=== PATIENT | male | born 1945 | race Caucasian/White ===

== ENCOUNTER 2017-08-28 13:28 | Outpatient (POV) | payer MEDICARE, OTHER, SELFPAY | END 2017-08-28 15:39 | disposition home or self-care (01) | PROVIDERS: Family Provider Internal Medicine; PCP Internal Medicine; Visit Provider Urology | DX: N20.1 Calculus of ureter (principal) | CPT/HCPCS: 81002; 99212 ==

== ENCOUNTER → 2017-09-04 17:27 | Outpatient (REF) | payer MEDICARE, OTHER, SELFPAY ==
[2017-09-14 17:12] LABS: Specimen Type Comment: (.)
== END ==
LOC: LAB 17:27
PROVIDERS: Visit Provider Urology
DX: N20.1 Calculus of ureter (principal)
CPT/HCPCS: 82370

== ENCOUNTER → 2017-10-26 09:29 | Outpatient (CLI) | payer MEDICARE, SELFPAY ==
--- NOTE | 2017-10-26 09:33 | XR_ITS ---
XR wrist LT min 3V HISTORY: Left wrist pain ITS.REASON: left wrist pain ORDERING PHYSICIAN: Rickie Hercules MD PATIENT AGE: 71 years COMPARISON: None FINDINGS: There are severe osteoarthritic changes at the scaphotrapezium joint with loss of joint space, osteosclerosis, and subcortical cystic changes. No fracture or dislocation. No other significant anomalies. IMPRESSION: Severe osteoarthritis of the scaphotrapezium joint
== END ==
PROVIDERS: PCP Internal Medicine; Visit Provider Orthopaedic Surgery
DX: M25.532 Pain in left wrist (principal)
CPT/HCPCS: 73110

== ENCOUNTER 2017-10-26 10:40 | Outpatient (RCR) | payer MEDICARE, SELFPAY | END 2017-12-13 08:38 | disposition home or self-care (01) | LOC: OT 10:40 | PROVIDERS: Visit Provider Orthopaedic Surgery | DX: M19.032 Primary osteoarthritis, left wrist (principal); M25.532 Pain in left wrist | CPT/HCPCS: 97760 ==

== ENCOUNTER → 2017-11-27 12:43 | Outpatient (CLI) | payer MEDICARE, SELFPAY ==
--- NOTE | 2017-11-27 12:49 | XR_ITS ---
XR KUB CLINICAL INDICATION: ITS.REASON: KIDNEY STONES ORDERING PHYSICIAN: Law Corrales MD PATIENT AGE: 72 years COMPARISON: 05/17/2015 FINDINGS: There is a moderate amount of feces obscuring the renal outlines. Faint densities are noted over the lower pole left kidney consistent left-sided nephrolithiasis. Previous CT scan showed a stone in the left mid ureter. There is a 3 to 4 mm opacity in the left pelvic region which could be related to a distal ureteral stone.. IMPRESSION: 1. Left nephrolithiasis. 2. Possible 3 mm left distal ureteral stone versus phlebolith
== END ==
PROVIDERS: PCP Internal Medicine; Visit Provider Urology
DX: N20.0 Calculus of kidney (principal)
CPT/HCPCS: 74018

== ENCOUNTER → 2017-12-03 17:07 | Outpatient (CLI) | payer MEDICARE, SELFPAY ==
[2017-12-03 19:50] LABS: Prostate Specific Ag, Diagnost 0 ng/mL (0.0-4.0)
== END ==
PROVIDERS: Visit Provider Urology
DX: C61 Malignant neoplasm of prostate (principal)
CPT/HCPCS: 36415; 84153

== ENCOUNTER → 2018-05-27 07:02 | Outpatient (CLI) | payer MEDICARE, SELFPAY ==
[2018-05-27 09:20] LABS: Prostate Specific Ag, Diagnost < 0.05 ng/mL (0.0-4.0)
== END ==
PROVIDERS: PCP Internal Medicine; Visit Provider Urology
DX: C61 Malignant neoplasm of prostate (principal)
CPT/HCPCS: 36415; 84153

== ENCOUNTER → 2019-04-23 09:16 | Outpatient (CLI) | payer MEDICARE, SELFPAY ==
--- NOTE | 2019-04-23 09:23 | XR_ITS ---
PROCEDURE: XR SHOULDER LT MIN 2V CLINICAL INDICATION: BILAT SHOULDER PAIN Pain and stiffness COMPARISON: No exams were available for comparison FINDINGS: There are postsurgical changes with metallic anchors at the a chromium and proximal humerus. There is severe subacromial stenosis. There is deformity of the humeral head with severe osteoarthritis of the glenohumeral joint and prominent osteophyte formation along the inferior aspect of the glenoid IMPRESSION: Severe osteoarthritis left shoulder with postsurgical changes and loss of the subacromial space consistent with chronic tear of the rotator cuff Dictated by: Bart Bach MD 04/23/2019 16:45 Signed by: <Electronically signed by Bart Bach MD in [place]> 04/23/2019 16:45
--- NOTE | 2019-04-23 09:23 | XR_ITS ---
PROCEDURE: XR SHOULDER RT MIN 2V CLINICAL INDICATION: BILAT SHOULDER PAIN Right shoulder pain COMPARISON: No exams were available for comparison FINDINGS: There are postsurgical changes with metallic anchor along the humeral neck laterally. There is severe subacromial stenosis the with bony hypertrophy and osteosclerosis consistent with osteoarthritis. Calcification is present along the humeral head laterally consistent with calcific tendinitis. There loss of the acromiohumeral space consistent with rotator cuff tear with superior location of the humeral head. IMPRESSION: Calcific tendonitis with severe osteoarthritic change and loss of subacromial space consistent with rotator cuff tear Dictated by: Bart Bach MD 04/23/2019 16:46 Signed by: <Electronically signed by Bart Bach MD in [place]> 04/23/2019 16:46
== END ==
PROVIDERS: PCP Internal Medicine; Visit Provider Internal Medicine
DX: M25.511 Pain in right shoulder (principal); M25.512 Pain in left shoulder; M25.612 Stiffness of left shoulder, not elsewhere classified; M25.611 Stiffness of right shoulder, not elsewhere classified
CPT/HCPCS: 73030

== ENCOUNTER → 2019-06-17 08:28 | Outpatient (CLI) | payer MEDICARE, SELFPAY ==
[2019-06-17 10:59] LABS: Prostate Specific Ag, Diagnost 0 ng/mL (0.0-4.0)
== END ==
PROVIDERS: Visit Provider Urology
DX: C61 Malignant neoplasm of prostate (principal)
CPT/HCPCS: 36415; 84153

== ENCOUNTER → 2019-07-25 11:07 | Outpatient (CLI) | payer MEDICARE, SELFPAY ==
--- NOTE | 2019-07-25 11:29 | ECG_ITS ---
APPROVED REPORT Exam: Resting ECG HR:63 bpm ECG Measurements Heart Rate 63 AXES GA 170 P 60 QRSd 94 QRS 88 QT 388 T 54 QTc 397 <Conclusion> Sinus rhythm with PAC'S Otherwise normal ECG Electronically signed by : Kavon Alcantara, 07/28/2019 16:59:25
== END ==
PROVIDERS: PCP Internal Medicine; Visit Provider Internal Medicine
DX: I49.9 Cardiac arrhythmia, unspecified (principal); Z96.611 Presence of right artificial shoulder joint
CPT/HCPCS: 93005

== ENCOUNTER → 2021-05-17 10:27 | Outpatient (POV) | payer MEDICARE, SELFPAY | PROVIDERS: Visit Provider Dermatology | DX: Z00.00 Encounter for general adult medical examination without abnormal findings (principal) ==

== ENCOUNTER → 2021-06-07 13:27 | Outpatient (POV) | payer MEDICARE, SELFPAY | PROVIDERS: Visit Provider Dermatology | DX: Z00.00 Encounter for general adult medical examination without abnormal findings (principal) ==

== ENCOUNTER → 2021-11-02 12:15 | Outpatient (CLI) | payer MEDICARE, SELFPAY ==
[2021-11-02 14:00] LABS: Basophils # 0.1 K/mm3 (0-0.2); Basophils % 1.2 % (0.1-2.0); Eosinophils # 0.2 K/mm3 (0.0-0.4); Eosinophils % 3.8 % (0.1-12.0); Hematocrit 46.1 % (42.0-52.0); Hemoglobin 14.6 g/dL (14.1-18.0); Lymphocytes % 21.4 % (10-50); Mean Corpuscular HGB Conc 31.7 g/dL (31.8-35.4); Mean Corpuscular Hemoglobin 29.1 pg (27.0-31.2); Mean Corpuscular Volume 91.9 fl (80-94); Monocytes # 0.3 K/mm3 (0.1-1.0); Monocytes % 7.1 % (1.7-9.3); Neutrophils # 3.1 K/mm3 (1.8-7.8); Neutrophils % 66.6 % (37.0-80.0); Platelet Count 345 K/mm3 (142-424); Red Blood Count 5.01 M/mm3 (4.60-6.20); Red Cell Distribution Width 14.5 % (11.5-17.5); White Blood Count 4.6 K/mm3 (4.8-10.8)
[2021-11-02 14:38] LABS: Alanine Aminotransferase 22 U/L (12-78); Albumin Level 4.3 g/dl (3.5-5.0); Alkaline Phosphatase 123 U/L (38-126); Anion Gap 11.6 mEq/L (5-15); Aspartate Amino Transferase 52 U/L (17-59); Bilirubin,Total 1.3 mg/dl (0.2-1.3); Blood Urea Nitrogen 30 mg/dl (9-20); Calcium 8.6 mg/dl (8.4-10.2); Carbon Dioxide 27 mmol/L (22.0-30.0); Chloride 106 mmol/L (98-107); Chol/HDL Ratio 2.4 (1-3.5); Cholesterol 171 mg/dl (140-200); Estimated Glomerular Filt Rate 82 ml/min (>60); GFR (African American) 99 ML/MIN (>60); Globulin 2.2 g/dL (1.3-3.2); Glucose 74 mg/dl (74-100); HDL Cholesterol 72 mg/dl (40-60); Potassium 4.6 mmoL/L (3.5-5.1); Sodium 140 mmol/L (136-145); Total Protein,Serum 6.5 g/dl (6.3-8.2); Triglycerides 38 mg/dl (30-150); VLDL Cholesterol 8 mg/dL (0-40)
[2021-11-02 14:49] LABS: Direct LDL Cholesterol 67.94 mg/dL (100-129)
== END ==
PROVIDERS: Visit Provider Internal Medicine
DX: I49.1 Atrial premature depolarization (principal); E78.5 Hyperlipidemia, unspecified; M15.0 Primary generalized (osteo)arthritis
CPT/HCPCS: 80053; 80061; 85025

== ENCOUNTER → 2022-05-05 14:05 | Outpatient (CLI) | payer MEDICARE, SELFPAY ==
[2022-05-05 16:40] LABS: Alanine Aminotransferase 21 U/L (12-78); Albumin Level 4.1 g/dl (3.5-5.0); Albumin/Globulin Ratio 1.7 (1.1-1.8); Alkaline Phosphatase 138 U/L (38-126); Anion Gap 10.9 mEq/L (5-15); Aspartate Amino Transferase 37 U/L (17-59); Bilirubin,Total 1.2 mg/dl (0.2-1.3); Blood Urea Nitrogen 34 mg/dl (9-20); Calcium 8.9 mg/dl (8.4-10.2); Carbon Dioxide 26 mmol/L (22.0-30.0); Chloride 107 mmol/L (98-107); Chol/HDL Ratio 2.6 (1-3.5); Cholesterol 150 mg/dl (140-200); Estimated Glomerular Filt Rate 82 ml/min (>60); GFR (African American) 99 ML/MIN (>60); Globulin 2.4 g/dL (1.3-3.2); Glucose 72 mg/dl (74-100); HDL Cholesterol 57 mg/dl (40-60); Potassium 4.9 mmoL/L (3.5-5.1); Sodium 139 mmol/L (136-145); Total Protein,Serum 6.5 g/dl (6.3-8.2); Triglycerides 56 mg/dl (30-150); VLDL Cholesterol 11 mg/dL (0-40)
[2022-05-05 17:11] LABS: Prostate Specific Ag Screen < 0.1 ng/ml (0.0-4.0)
[2022-05-10 19:10] LABS: Direct LDL Cholesterol 80 mg/dL (100-129)
== END ==
PROVIDERS: PCP Internal Medicine; Visit Provider Internal Medicine
DX: I71.4 Abdominal aortic aneurysm, without rupture (principal); E78.5 Hyperlipidemia, unspecified; Z85.46 Personal history of malignant neoplasm of prostate; Z12.5 Encounter for screening for malignant neoplasm of prostate
CPT/HCPCS: 80053; 80061; G0103

== ENCOUNTER → 2022-11-04 08:41 | Outpatient (CLI) | payer MEDICARE, SELFPAY ==
[2022-11-04 11:11] LABS: Blood Urea Nitrogen 25 mg/dl (9-20); Estimated Glomerular Filt Rate 65 ml/min (>60); GFR (African American) 78 ML/MIN (>60)
== END ==
PROVIDERS: PCP Internal Medicine; Visit Provider Ophthalmology
DX: Z01.812 Encounter for preprocedural laboratory examination (principal)
CPT/HCPCS: 36415; 82565; 84520

== ENCOUNTER → 2022-11-06 08:37 | Outpatient (CLI) | payer MEDICARE, SELFPAY ==
--- NOTE | 2022-11-06 08:45 | MR_ITS ---
FINAL REPORT CLINICAL HISTORY: BILATERAL BLURRED VISION since aug 2019. FINDINGS: Multiplanar MR imaging of the brain was performed without and with contrast. There is age-appropriate atrophy. There is are severe chronic ischemic/gliotic changes. 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 There is no evidence of intracranial hemorrhage or mass. No abnormal extra-axial fluid collection is seen. The ventricular size is within normal limits. There is no evidence of shift of the midline structures. The posterior fossa and brainstem have an unremarkable appearance. No area of abnormal restricted diffusion is identified. No abnormal contrast enhancement is seen. Normal major vessel vascular flow voids are noted. There is mild mucosal thickening in multiple paranasal sinuses. IMPRESSION: No acute intracranial abnormality identified and no abnormal contrast enhancement. Chronic changes as above. Reviewed, Interpreted and Dictated by Vega Alfonso III, MD Transcribed by Kriss Menendez Authenticated and [facility]
== END ==
PROVIDERS: PCP Internal Medicine; Visit Provider Ophthalmology
DX: H54.7 Unspecified visual loss (principal)
CPT/HCPCS: 70553; A9576

== ENCOUNTER → 2022-11-10 12:16 | Outpatient (CLI) | payer MEDICARE, SELFPAY ==
[2022-11-10 13:08] LABS: Basophils # 0.1 K/mm3 (0-0.2); Basophils % 1.1 % (0.1-2.0); Eosinophils # 0.1 K/mm3 (0.0-0.4); Eosinophils % 2.2 % (0.1-12.0); Hematocrit 44.9 % (42.0-52.0); Hemoglobin 14.5 g/dL (14.1-18.0); Lymphocytes # 0.8 K/mm3 (0.7-4.5); Lymphocytes % 18.5 % (10-50); Mean Corpuscular HGB Conc 32.4 g/dL (31.8-35.4); Mean Corpuscular Hemoglobin 27.1 pg (27.0-31.2); Mean Corpuscular Volume 83.6 fl (80-94); Mean Platelet Volume 8.8 fl (7.4-10.4); Monocytes # 0.3 K/mm3 (0.1-1.0); Monocytes % 6.3 % (1.7-9.3); Platelet Count 298 K/mm3 (142-424); Red Blood Count 5.37 M/mm3 (4.60-6.20); Red Cell Distribution Width 15.8 % (11.5-17.5); White Blood Count 4.1 K/mm3 (4.8-10.8)
[2022-11-10 14:01] LABS: Chloride 106 mmol/L (98-107); Potassium 4.8 mmoL/L (3.5-5.1); Sodium 140 mmol/L (136-145)
[2022-11-10 14:03] LABS: Blood Urea Nitrogen 26 mg/dl (9-20); Estimated Glomerular Filt Rate 72 ml/min (>60); GFR (African American) 87 ML/MIN (>60)
[2022-11-10 14:04] LABS: Alanine Aminotransferase 30 U/L (12-78); Albumin Level 4.1 g/dl (3.5-5.0); Albumin/Globulin Ratio 1.7 (1.1-1.8); Alkaline Phosphatase 129 U/L (38-126); Anion Gap 9.8 mEq/L (5-15); Aspartate Amino Transferase 40 U/L (17-59); Bilirubin,Total 0.8 mg/dl (0.2-1.3); Calcium 8.3 mg/dl (8.4-10.2); Carbon Dioxide 29 mmol/L (22.0-30.0); Cholesterol 153 mg/dl (140-200); Globulin 2.4 g/dL (1.3-3.2); Glucose 83 mg/dl (74-100); HDL Cholesterol 82 mg/dl (40-60); Total Protein,Serum 6.5 g/dl (6.3-8.2); Triglycerides 32 mg/dl (30-150); VLDL Cholesterol 6 mg/dL (0-40)
[2022-11-10 14:05] LABS: Chol/HDL Ratio 1.9 (1-3.5)
[2022-11-10 14:15] LABS: Direct LDL Cholesterol 73.36 mg/dL (100-129)
== END ==
PROVIDERS: PCP Internal Medicine; Visit Provider Internal Medicine
DX: E78.5 Hyperlipidemia, unspecified (principal); I71.40 Abdominal aortic aneurysm, without rupture, unspecified; Z87.442 Personal history of urinary calculi
CPT/HCPCS: 80053; 80061; 85025

== ENCOUNTER → 2022-12-12 10:22 | Outpatient (POV) | payer MEDICARE, SELFPAY | PROVIDERS: Visit Provider Dermatology | DX: Z00.00 Encounter for general adult medical examination without abnormal findings (principal) ==

== ENCOUNTER → 2023-05-14 13:26 | Outpatient (CLI) | payer MEDICARE, SELFPAY ==
[2023-05-14 15:38] LABS: Basophils % 0.6 % (0.1-2.0); Eosinophils # 0.1 K/mm3 (0.0-0.4); Eosinophils % 2.3 % (0.1-12.0); Hematocrit 48.3 % (42.0-52.0); Hemoglobin 15.3 g/dL (14.1-18.0); Lymphocytes # 0.8 K/mm3 (0.7-4.5); Mean Corpuscular HGB Conc 31.6 g/dL (31.8-35.4); Mean Corpuscular Hemoglobin 27.1 pg (27.0-31.2); Mean Corpuscular Volume 85.8 fl (80-94); Mean Platelet Volume 9.1 fl (7.4-10.4); Monocytes # 0.3 K/mm3 (0.1-1.0); Monocytes % 5.4 % (1.7-9.3); Neutrophils # 3.6 K/mm3 (1.8-7.8); Neutrophils % 74.6 % (37.0-80.0); Platelet Count 311 K/mm3 (142-424); Red Blood Count 5.63 M/mm3 (4.60-6.20); Red Cell Distribution Width 15.1 % (11.5-17.5); White Blood Count 4.9 K/mm3 (4.8-10.8)
[2023-05-14 16:34] LABS: Alanine Aminotransferase 43 U/L (12-78); Albumin Level 4.1 g/dl (3.5-5.0); Albumin/Globulin Ratio 1.5 (1.1-1.8); Alkaline Phosphatase 147 U/L (38-126); Anion Gap 13.9 mEq/L (5-15); Aspartate Amino Transferase 43 U/L (17-59); Bilirubin,Total 0.8 mg/dl (0.2-1.3); Blood Urea Nitrogen 24 mg/dl (9-20); Calcium 8.7 mg/dl (8.4-10.2); Carbon Dioxide 28 mmol/L (22.0-30.0); Chloride 103 mmol/L (98-107); Estimated Glomerular Filt Rate 81 ml/min (>60); GFR (African American) 98 ML/MIN (>60); Globulin 2.7 g/dL (1.3-3.2); Glucose 75 mg/dl (74-100); Potassium 4.9 mmoL/L (3.5-5.1); Sodium 140 mmol/L (136-145); Total Protein,Serum 6.8 g/dl (6.3-8.2)
[2023-05-15 19:40] LABS: Chol/HDL Ratio 2.5 (1-3.5); Cholesterol 166 mg/dl (140-200); HDL Cholesterol 66 mg/dl (40-60); Triglycerides 48 mg/dl (30-150); VLDL Cholesterol 10 mg/dL (0-40)
[2023-05-15 19:50] LABS: Direct LDL Cholesterol 79.86 mg/dL (100-129)
== END ==
PROVIDERS: PCP Internal Medicine; Visit Provider Internal Medicine
DX: E78.5 Hyperlipidemia, unspecified (principal); I71.40 Abdominal aortic aneurysm, without rupture, unspecified; M19.012 Primary osteoarthritis, left shoulder; M19.011 Primary osteoarthritis, right shoulder; Z87.442 Personal history of urinary calculi; Z96.611 Presence of right artificial shoulder joint; Z85.46 Personal history of malignant neoplasm of prostate
CPT/HCPCS: 80053; 80061; 85025

== ENCOUNTER 2023-10-16 11:49 | Outpatient (POV) | payer MEDICARE, SELFPAY | END 2023-10-16 23:59 | disposition home or self-care (01) | LOC: SC 11:51 | PROVIDERS: PCP Internal Medicine; Visit Provider Dermatology | DX: Z00.00 Encounter for general adult medical examination without abnormal findings (principal) ==

== ENCOUNTER 2023-11-12 13:16 | Outpatient (CLI) | payer MEDICARE, SELFPAY ==
[2023-11-12 15:15] LABS: Basophils # 0.1 K/mm3 (0-0.2); Eosinophils # 0.1 K/mm3 (0.0-0.4); Eosinophils % 2.4 % (0.1-12.0); Hematocrit 49.8 % (42.0-52.0); Hemoglobin 15.5 g/dL (14.1-18.0); Lymphocytes # 0.9 K/mm3 (0.7-4.5); Lymphocytes % 16.7 % (10-50); Mean Corpuscular HGB Conc 31.2 g/dL (31.8-35.4); Mean Corpuscular Hemoglobin 28.8 pg (27.0-31.2); Mean Corpuscular Volume 92.3 fl (80-94); Mean Platelet Volume 9.2 fl (7.4-10.4); Monocytes # 0.3 K/mm3 (0.1-1.0); Monocytes % 5.9 % (1.7-9.3); Neutrophils # 3.9 K/mm3 (1.8-7.8); Neutrophils % 73.9 % (37.0-80.0); Platelet Count 275 K/mm3 (142-424); Red Cell Distribution Width 15.2 % (11.5-17.5); White Blood Count 5.3 K/mm3 (4.8-10.8)
[2023-11-12 15:40] LABS: Alanine Aminotransferase 42 U/L (12-78); Albumin Level 4.3 g/dl (3.5-5.0); Albumin/Globulin Ratio 1.9 (1.1-1.8); Alkaline Phosphatase 141 U/L (38-126); Aspartate Amino Transferase 44 U/L (17-59); Bilirubin,Total 1.2 mg/dl (0.2-1.3); Blood Urea Nitrogen 24 mg/dl (9-20); Calcium 8.8 mg/dl (8.4-10.2); Carbon Dioxide 28 mmol/L (22.0-30.0); Chloride 104 mmol/L (98-107); Chol/HDL Ratio 2.7 (1-3.5); Cholesterol 170 mg/dl (140-200); Estimated Glomerular Filt Rate 72 ml/min (>60); GFR (African American) 87 ML/MIN (>60); Globulin 2.3 g/dL (1.3-3.2); Glucose 69 mg/dl (74-100); HDL Cholesterol 62 mg/dl (40-60); Sodium 139 mmol/L (136-145); Total Protein,Serum 6.6 g/dl (6.3-8.2); Triglycerides 42 mg/dl (30-150); VLDL Cholesterol 8 mg/dL (0-40)
[2023-11-12 15:51] LABS: Direct LDL Cholesterol 82.13 mg/dL (100-129)
== END 2023-11-12 23:59 ==
PROVIDERS: PCP Internal Medicine; Visit Provider Internal Medicine
DX: I49.1 Atrial premature depolarization (principal); I71.40 Abdominal aortic aneurysm, without rupture, unspecified; E78.5 Hyperlipidemia, unspecified; M15.0 Primary generalized (osteo)arthritis; Z85.46 Personal history of malignant neoplasm of prostate; M25.511 Pain in right shoulder; Z96.611 Presence of right artificial shoulder joint
CPT/HCPCS: 80053; 80061; 85025

== ENCOUNTER 2023-12-28 20:25 | Emergency (ER) | payer MEDICARE, SELFPAY ==
[2023-12-28 20:30] VITALS: BP 178/109; PULSE 56; RESP 19; TEMP 36.4; O2SAT 98; BMI 22.6
[2023-12-28 20:35] VITALS: BP 178/109; PULSE 54; RESP 18; O2SAT 98
--- NOTE | 2023-12-28 20:38 | CT_ITS ---
PROCEDURE INFORMATION: Exam: CT Head Without Contrast Exam date and time: 12/28/2023 8:42 PM Age: 78 years old Clinical indication: Stroke-like symptoms; Speech disturbance; Right facial droop; Additional info: Speech difficulty, R facial droop, rue weakness TECHNIQUE: Imaging protocol: Computed tomography of the head without contrast. Radiation optimization: All CT scans at this facility use at least one of these dose optimization techniques: automated exposure control; mA and/or kV adjustment per patient size (includes targeted exams where dose is matched to clinical indication); or iterative reconstruction. Other technique: STROKE PROTOCOL was implemented. COMPARISON: MR HEAD/BRAIN WO/W CON 11/06/2022 8:56 AM FINDINGS: Brain: There are old bilateral basal ganglia infarcts. The brain parenchyma appears unremarkable, with no signs of acute intracranial hemorrhage or significant mass effect. There is hypodensity in the subcortical and periventricular white matter which is technically nonspecific but most often related to chronic microvascular disease. Cerebral ventricles: Mild ventricular enlargement consistent with age-related cerebral atrophy is noted. Paranasal sinuses: Paranasal sinuses show age-appropriate mucosal thickening. Mastoid air cells: Visualized mastoid air cells are well aerated. Bones/joints: There are no skull fractures or bony lesions. Soft tissues: Unremarkable. IMPRESSION: 1. Presumably age-related and chronic changes without acute intracranial abnormality. 2. If clinical concern persists, MRI would be suggested. ASSESSMENT: ASPECTS ([place] Stroke Program Early CT Score) is 10.
--- NOTE | 2023-12-28 20:38 | XR_ITS ---
PROCEDURE INFORMATION: Exam: XR Chest Exam date and time: 12/28/2023 8:42 PM Age: 78 years old Clinical indication: Other: Stroke like; Additional info: Stroke like SX TECHNIQUE: Imaging protocol: Radiologic exam of the chest. Views: 1 view. COMPARISON: CR XR SHOULDER LT MIN 2V 04/23/2019 9:41 AM FINDINGS: Lungs: No evidence of acute pulmonary disease or infiltrates Pleural spaces: No large effusion or pneumothorax. Heart/Mediastinum: Stable cardiac and mediastinal contours. Bones/joints: Status post right shoulder arthroplasty. There are surgical anchors in the left humerus and acromion. IMPRESSION: No dense parenchymal consolidation, pleural effusion, or pneumothorax.
--- NOTE | 2023-12-28 20:38 | CT_ITS ---
PROCEDURE INFORMATION: Exam: CTA Head With Contrast, Arteriography Exam date and time: 12/28/2023 8:44 PM Age: 78 years old Clinical indication: Stroke-like symptoms; Speech disturbance; Right facial droop; RT upper extremity weakness; Additional info: Speech difficulty, R facial droop, rue weakness TECHNIQUE: Imaging protocol: Computed tomographic angiography of the head with contrast. Exam focused on the arteries. 3D rendering (Not supervised by radiologist): MIP and/or 3D reconstructed images were created by the technologist. Radiation optimization: All CT scans at this facility use at least one of these dose optimization techniques: automated exposure control; mA and/or kV adjustment per patient size (includes targeted exams where dose is matched to clinical indication); or iterative reconstruction. Contrast material: ISOUVE 370; Contrast volume: 100 ml; Contrast route: INTRAVENOUS (IV); COMPARISON: 1. CT HEAD/BRAIN WO CON 12/28/2023 8:42 PM 2. MR HEAD/BRAIN WO/W CON 11/06/2022 8:[address] ANGIO NECK 12/28/2023 8:44 PM FINDINGS: ANTERIOR CIRCULATION: Right internal carotid artery: Intracranial segment is patent with no significant stenosis. No aneurysm. Right middle cerebral artery: No occlusion or significant stenosis. No aneurysm. Right anterior cerebral artery: No occlusion or significant stenosis. No aneurysm. Left internal carotid artery: Intracranial segment is patent with no significant stenosis. No aneurysm. Left middle cerebral artery: No occlusion or significant stenosis. No aneurysm. Left anterior cerebral artery: No occlusion or significant stenosis. No aneurysm. POSTERIOR CIRCULATION: Right vertebral artery: No occlusion or significant stenosis. No aneurysm. Left vertebral artery: No occlusion or significant stenosis. No aneurysm. Basilar artery: No occlusion or significant stenosis. No aneurysm. Right posterior cerebral artery: No occlusion or significant stenosis. No aneurysm. Left posterior cerebral artery: No occlusion or significant stenosis. No aneurysm. Brain: No definite mass, mass effect, or midline shift. Cerebral ventricles: Mild enlargement of the ventricles compatible with age related atrophy. Bones/joints: Unremarkable. No acute fracture. Soft tissues: Unremarkable. Other findings: Partially visualized changes of emphysema. IMPRESSION: No large vessel stenosis or occlusion.
--- NOTE | 2023-12-28 20:41 | HMH.EDGENADL ---
Discharge Plan Disposition Patient Disposition: Xfer Short-Term Hosp Prescriptions Prescriptions: No Action chlorthalidone 25 mg tablet 25 mg PO QOD ketoprofen 75 mg capsule 75 mg PO TID atorvastatin 20 mg tablet 20 mg PO ONCE Referrals Follow up/Referrals: Kavon Alcantara MD [Primary Care Provider] - See instructions Clinical Impressions Clinical Impression: Cerebrovascular accident Discharge ED Provider: Natalya Patel General Adult HPI General Chief complaint: Neuro Symptoms/Deficit Stated complaint: loss of balance Time Seen by Provider: 12/28/23 20:38 History of Present Illness HPI narrative: This patient is an 78-year-old male with a history of hyperlipidemia presenting to the emergency department for evaluation with concern for balance issues and slurred speech. According to the patient's , he had a doctor's appointment in [place] today, which was a routine visit for him. He gets motion sickness, so he was not feeling very well, so he took a nap once he got home. This was not outside of the ordinary for him. He got up, they went out to take care of his chickens, and she noted that when they came back inside around 6:30 PM, he was having to grab a hold of things and could not walk on his own. This is very unusual for him. This started suddenly. Upon arrival, the patient also started having significant dysarthria. No other concerns noted as of late. He does not take any anticoagulation. Related Data Home Medications Medication Instructions Recorded Confirmed atorvastatin 20 mg tablet 20 mg PO ONCE 10/26/17 06/17/19 chlorthalidone 25 mg tablet 25 mg PO QOD 10/26/17 06/17/19 ketoprofen 75 mg capsule 75 mg PO TID 10/26/17 06/17/19 Allergies Allergy/AdvReac Type Severity Reaction Status Date / Time Penicillins Allergy Intermediate I-HIVES Verified 06/17/19 14:18 [facility] Disclaimer: The information contained in this section may have been updated after the patient was seen, as this information can be updated by other users. Social History Smoking Status: Never smoker alcohol intake: never current occupational status: other Travel in the last 8 weeks: None ROS Obtained: Yes All systems reviewed & no additional complaints except as documented Physical Exam General General appearance: alert and in no apparent distress Head Head exam: atraumatic and normocephalic Eye Eye exam: Present normal appearance, PERRL and EOMI ENT ENT exam: Present normal exam, normal oropharynx, mucous membranes moist and normal external ear exam Neck Neck exam: Present normal inspection, full ROM and trachea midline; Absent tenderness Chest Chest inspection: Present normal inspection and symmetric chest wall rise; Absent tenderness Respiratory Respiratory exam: Present normal lung sounds bilaterally; Absent respiratory distress, wheezes, stridor or accessory muscle use Cardiovascular Cardiovascular exam: Present regular rate and normal rhythm Abdominal Exam Abdominal exam: Present soft; Absent distention, tenderness or guarding Extremities Exam Extremities exam: Present normal inspection, full ROM and normal capillary refill; Absent tenderness or edema Back Exam Back exam: Present normal inspection and full ROM; Absent tenderness Neurological Exam Neurological exam: Present alert and oriented X3; Absent CN II-XII intact (Subtle facial droop of the right lower face) or normal gait Expanded Neurological Exam Patient oriented to: Present person, place and time Coma scale eye opening: Spontaneous Coma scale motor response: Obeys commands Coma scale verbal response: Oriented Coma scale total: 15 Comment: NIH stroke scale of 3 for subtle right-sided facial droop, dysarthria, and right upper extremity discoordination Psychiatric Psychiatric exam: Present normal affect and normal mood Skin Skin exam: Present warm and dry Medical Decision Making Medical Records Medical records reviewed: Yes I reviewed the patient's medical records. Nii Inquiry Pt receiving controlled substance: No Vital Signs: 12/28/23 20:30 12/28/23 20:35 12/28/23 21:01 Temperature 97.6 F Temperature Source Oral Pulse Rate 54 L 53 L Pulse Rate [Right Brachial] 56 L Respiratory Rate 19 18 16 Blood Pressure 178/109 H 150/74 H Blood Pressure [righta rm] 178/109 H Blood Pressure Mean 119 116 Blood Pressure Mean [righta rm] 132 Blood Pressure Source [righta rm] Automatic Cuff Blood Pressure Position [righta rm] Sitting 02 Sat by Pulse Oximetry 98 98 97 Oxygen Delivery Method Room Air Room Air Room Air Lab Data Lab results reviewed: Yes I reviewed the patient's lab results. Lab Results 12/28/23 20:37: WBC 4.2 L, RBC 5.45, Hgb 15.7, Hct 47.3, MCV 86.8, MCH 28.8, MCHC 33.2, RDW 15.6, Plt Count 260, MPV 8.1, Neut % (Auto) 73.7, Lymph % (Auto) 16.3, Chase % (Auto) 7.5, Eos % (Auto) 1.1, Baso % (Auto) 1.5, Neut # (Auto) 3.1, Lymph # (Auto) 0.7, Chase # (Auto) 0.3, Eos # (Auto) 0.1, Baso # (Auto) 0.1, PT 10.8, INR 1.00, APTT 30.4, Sodium 139, Potassium 4.6, Chloride 105, Carbon Dioxide 30, Anion Gap 8.6, BUN 23 H, Creatinine 0.80, Estimated Creat Clear 53, Estimated GFR 93, Est GFR ( Amer) 113, Glucose 107 H, Calcium 9.2, Total Bilirubin 1.0, AST 43, ALT 45, Alkaline Phosphatase 154 H, Troponin I < 0.01, Total Protein 6.8, Albumin 4.0, Globulin 2.8, Albumin/Globulin Ratio 1.4 12/28/23 20:37 12/28/23 20:37 Orders (Tests/Meds): ED MEDICATIONS Generic Name Dose Route Start Last Admin Trade Name Freq PRN Reason Stop Dose Admin Sodium Chloride 10 ml 12/28/23 20:41 12/28/23 20:43 Sodium Chloride 0.9% 10ml Syr (Rad Only) IV 01/27/24 20:40 10 ml NEEDED PRN Administration Maintain IV Site Tenecteplase 16 mg 12/28/23 21:45 Tenecteplase 50mg Vial IV 12/28/23 21:46 ONCE ONE Discontinued Medications Generic Name Dose Route Start Last Admin Trade Name Freq PRN Reason Stop Dose Admin Iopamidol 100 ml 12/28/23 20:41 12/28/23 20:43 Iopamidol-370 (76%);100ml Bottle IV 12/28/23 20:42 100 ml ONCE ONE Administration Sodium Chloride 50 ml 12/28/23 20:41 12/28/23 20:43 0.9 % Sodium Chloride 50 Ml Vial IV 12/28/23 20:42 50 ml ONCE ONE Administration ORDERS Category Date Time Status CT angio head Stat Cat Scan 12/28/23 20:[address] angio neck Stat Cat Scan 12/28/23 20:[address] head/brain wo con Stat Cat Scan 12/28/23 20:38 Completed XR chest portable Stat Exams 12/28/23 20:38 Completed Activated Partial Thrombo Time Stat Lab 12/28/23 20:37 Completed Complete Blood Count Auto Diff Stat Lab 12/28/23 20:37 Completed Comprehensive Metabolic Panel Stat Lab 12/28/23 20:37 Completed Prothrombin Time INR Stat Lab 12/28/23 20:37 Completed Troponin I Q3H Lab 12/28/23 23:45 Ordered Troponin I Q3H Lab 12/29/23 02:45 Ordered Troponin I Stat Lab 12/28/23 20:37 Completed Urinalysis and Microscopic Stat Lab 12/28/23 20:38 Ordered ECG Data Tracing #1: I reviewed this ECG and interpreted as documented below: Sinus bradycardia with a ventricular rate of [address] changes concerning for ischemia. ECG initial impression date: 12/28/23 ECG initial impression time: 21:06 Medical Decision Narrative: In summary, this patient is a 78-year-old male presenting to the Emergency Department for evaluation of dysarthria, gait instability. Differential diagnoses considered include but are not limited to CVA, intracranial hemorrhage, intracranial mass, hypoglycemia, other stroke mimic. Ruling out the most morbid conditions drove assessment. On exam, the patient has NIH stroke scale of 3 for a right-sided lower facial droop that is minor, dysarthria, and his coronation of the right upper extremity. Patient was stroke alerted and taken promptly to CT scans given that his last known normal was approximately 6:30 PM, which was just over 2 hours prior to evaluation. Workup included CBC, CMP, troponin, PT, PTT, chest x-ray, EKG, and stroke CT scans with CT head and CT angiogram of the head and neck. I independently interpreted CT scans prior to the radiologist read and noted no acute intracranial hemorrhage. Please see their read for final interpretation. Labs were obtained that demonstrated no acutely concerning abnormalities at this time. I had an interactive discussion with [facility] neurosurgery who noted no large vessel occlusion. I called and had an interactive discussion with [facility] neurologist Dr. Carrington who advised that she would recommend tenecteplase given that patient presents within window and his symptoms could be potentially devastating to his quality of life. I had a very long discussion with both the patient and his and explained the risks of tenecteplase, including bleeding such as catastrophic intracranial hemorrhage. The patient advised that he would not want to live his life unable to walk or talk normally. He stated that he would elect to receive TNK if it gives him the best chance of being able to walk normally. He states that he understands the risks. Said his family. He advises that the only concern that he has is he does not want to live in a vegetative state if he has a brain bleed. Based on my review of history, vital signs, and imaging, patient does not have absolute contraindications to tenecteplase. BP at time of order is 150's systolic. Ultimately, after consent was obtained after extensive discussion, decision was made to administer TNK. I had an indirect discussion with pharmacy who placed orders, and I also had an indirect discussion with [facility] who accepted the patient for transfer to the [place] emergency department. Critical Care Critical Care Time Critical Care Time: Yes Attestation: On 12/28/23, the high probability of a clinically significant, sudden or life threatening deterioration of the following system(s) required my full and direct attention, intervention and personal management. The time I documented below is in addition to time spent performing reported procedures but includes the following listed in this critical care notation. Total Time Total Critical Care Time: 45
[2023-12-28] MEDS: IOPAMIDOL-370 (76%);100ML BOTTLE 100 ML IV (20:43)
[2023-12-28] MEDS: SODIUM CHLORIDE 0.9% 10ML SYR (RAD ONLY) 10 ML IV (20:43)
[2023-12-28] MEDS: 0.9 % SODIUM CHLORIDE 50 ML VIAL IV (20:43)
[2023-12-28 20:45] LABS: Basophils # 0.1 K/mm3 (0-0.2); Basophils % 1.5 % (0.1-2.0); Eosinophils # 0.1 K/mm3 (0.0-0.4); Eosinophils % 1.1 % (0.1-12.0); Hematocrit 47.3 % (42.0-52.0); Hemoglobin 15.7 g/dL (14.1-18.0); Lymphocytes # 0.7 K/mm3 (0.7-4.5); Lymphocytes % 16.3 % (10-50); Mean Corpuscular HGB Conc 33.2 g/dL (31.8-35.4); Mean Corpuscular Hemoglobin 28.8 pg (27.0-31.2); Mean Corpuscular Volume 86.8 fl (80-94); Mean Platelet Volume 8.1 fl (7.4-10.4); Monocytes # 0.3 K/mm3 (0.1-1.0); Monocytes % 7.5 % (1.7-9.3); Neutrophils # 3.1 K/mm3 (1.8-7.8); Neutrophils % 73.7 % (37.0-80.0); Platelet Count 260 K/mm3 (142-424); Red Blood Count 5.45 M/mm3 (4.60-6.20); Red Cell Distribution Width 15.6 % (11.5-17.5); White Blood Count 4.2 K/mm3 (4.8-10.8)
[2023-12-28 20:51] LABS: Chloride 105 mmol/L (98-107); Potassium 4.6 mmoL/L (3.5-5.1); Sodium 139 mmol/L (136-145)
[2023-12-28 20:53] LABS: Blood Urea Nitrogen 23 mg/dl (9-20); Creatinine Clearance Estimated 53 mL/min (50-200); Estimated Glomerular Filt Rate 93 ml/min (>60); GFR (African American) 113 ML/MIN (>60)
[2023-12-28 20:54] LABS: Alanine Aminotransferase 45 U/L (12-78); Albumin/Globulin Ratio 1.4 (1.1-1.8); Alkaline Phosphatase 154 U/L (38-126); Anion Gap 8.6 mEq/L (5-15); Aspartate Amino Transferase 43 U/L (17-59); Calcium 9.2 mg/dl (8.4-10.2); Carbon Dioxide 30 mmol/L (22.0-30.0); Globulin 2.8 g/dL (1.3-3.2); Glucose 107 mg/dl (74-100); Total Protein,Serum 6.8 g/dl (6.3-8.2)
--- NOTE | 2023-12-28 20:54 | ECG_ITS ---
APPROVED REPORT Exam: Resting ECG HR:54 bpm ECG Measurements Heart Rate 54 AXES LA 177 P 43 QRSd 106 QRS 48 QT 429 T 48 QTc 416 Conclusion SINUS BRADYCARDIA WITH OCCASIONAL SUPRAVENTRICULAR PREMATURE COMPLEXES BORDERLINE ECG Electronically signed by : DOMINIQUE LISA, 12/29/2023 00:24:36
--- NOTE | 2023-12-28 20:55 | CT_ITS ---
PROCEDURE INFORMATION: Exam: CTA Neck With Contrast Exam date and time: 12/28/2023 8:44 PM Age: 78 years old Clinical indication: Stroke-like symptoms; Speech disturbance; Right facial droop; RT upper extremity weakness; Additional info: Speech difficulty, R facial droop, rue weakness TECHNIQUE: Imaging protocol: Computed tomographic angiography of the neck with contrast. Exam focused on the cervical segments of the vasculature. 3D rendering (Not supervised by radiologist): MIP and/or 3D reconstructed images were created by the technologist. Radiation optimization: All CT scans at this facility use at least one of these dose optimization techniques: automated exposure control; mA and/or kV adjustment per patient size (includes targeted exams where dose is matched to clinical indication); or iterative reconstruction. Contrast material: ISOUVE 370; Contrast volume: 100 ml; Contrast route: INTRAVENOUS (IV); COMPARISON: 1. CT ANGIO HEAD 12/28/2023 8:[address] HEAD/BRAIN WO CON 12/28/2023 8:42 PM FINDINGS: Right common carotid artery: There is atherosclerotic disease of the right carotid bulb without significant stenosis of the internal carotid artery. Right internal carotid artery: No stenosis of the extracranial segment. No dissection or occlusion. Right external carotid artery: No occlusion or stenosis of the origin. Left common carotid artery: There is atherosclerotic disease of the left carotid bulb without significant stenosis of the internal carotid artery. Left internal carotid artery: No stenosis of the extracranial segment. No dissection or occlusion. Left external carotid artery: No occlusion or stenosis of the origin. Right vertebral artery: No stenosis. No dissection or occlusion. Left vertebral artery: No stenosis. No dissection or occlusion. Soft tissues: Normal. No significant soft tissue swelling. Bones/joints: No acute fracture. IMPRESSION: Atherosclerotic disease of the carotid bulbs without significant stenosis of the internal carotid arteries. REFERENCES: NASCET CRITERIA. The degree of stenosis in the cervical segment of the internal carotid artery is based on NASCET criteria. Normal is no stenosis. Mild is less than 50% stenosis. Moderate is 50-69% stenosis. Severe is 70% to 99% stenosis. Total occlusion is no detectable patent lumen.
[2023-12-28 20:56] LABS: Activated Partial Thrombo Time 30.4 seconds (22.8-30.6); Prothrombin Time 10.8 seconds (10.1-12.5)
--- NOTE | 2023-12-28 20:58 | ECG_ITS ---
APPROVED REPORT Exam: Resting ECG HR:54 bpm ECG Measurements Heart Rate 54 AXES MA 203 P 67 QRSd 101 QRS 71 QT 424 T 69 QTc 411 Conclusion SINUS BRADYCARDIA WITH MARKED SINUS ARRHYTHMIA BORDERLINE ECG Electronically signed by : DOMINIQUE LISA, 12/29/2023 00:24:21
--- NOTE | 2023-12-28 21:00 | PC.NURSE ---
called [facility] and requested a disk and [employer] to [facility]
[2023-12-28 21:01] VITALS: BP 150/74; PULSE 53; RESP 16; O2SAT 97
[2023-12-28 21:06] LABS: Troponin I < 0.01 ng/ml (0.00-0.034)
--- NOTE | 2023-12-28 21:14 | PC.NURSE ---
dr galeano returned call from [facility]
--- NOTE | 2023-12-28 21:31 | PC.NURSE ---
Contacted pharmacy over TNK dosing and having an order placed by the pharmacy
--- NOTE | 2023-12-28 21:32 | PC.NURSE ---
consent obtained per physician/patient for tnk
[2023-12-28] MEDS: TENECTEPLASE 50MG VIAL 16 MG IV (21:41)
[2023-12-28 22:42] VITALS: BP 143/93; PULSE 57; RESP 57; TEMP 37; O2SAT 95
== END 2023-12-28 22:10 | disposition short-term general hospital (02) ==
PROVIDERS: Emergency Provider Emergency Medicine; PCP Internal Medicine
DX: I63.9 Cerebral infarction, unspecified (principal); R00.1 Bradycardia, unspecified; E78.5 Hyperlipidemia, unspecified
CPT/HCPCS: 70450; 70496; 70498; 71045; 80053; 84484; 85025; 85610; 85730; 93005; 96374; 99291; J3101; Q9967

== ENCOUNTER 2024-02-07 08:00 | Outpatient (RCR) | payer MEDICARE, SELFPAY | END 2024-02-07 09:20 | disposition home or self-care (01) | LOC: PT 08:00 | PROVIDERS: Visit Provider Student in an Organized Health Care Education/Training Program | DX: I63.9 Cerebral infarction, unspecified (principal) | CPT/HCPCS: 97110; 97112; 97163; 97164; 97530 ==

== ENCOUNTER 2024-03-31 08:00 | Outpatient (RCR) | payer MEDICARE, SELFPAY ==
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
== END 2024-03-31 08:05 | disposition home or self-care (01) ==
LOC: ST 08:00
PROVIDERS: Visit Provider Student in an Organized Health Care Education/Training Program
DX: I69.328 Other speech and language deficits following cerebral infarction (principal)
CPT/HCPCS: 92523; 97129; 97130

== ENCOUNTER 2024-05-14 10:10 | Outpatient (CLI) | payer MEDICARE, SELFPAY ==
[2024-05-14 17:16] LABS: Eosinophils # 0.3 K/mm3 (0.0-0.4); Eosinophils % 7.2 % (0.1-12.0); Hematocrit 46.4 % (42.0-52.0); Hemoglobin 14.4 g/dL (14.1-18.0); Lymphocytes # 0.9 K/mm3 (0.7-4.5); Mean Corpuscular HGB Conc 31.1 g/dL (31.8-35.4); Mean Corpuscular Hemoglobin 28.6 pg (27.0-31.2); Mean Corpuscular Volume 92.1 fl (80-94); Mean Platelet Volume 10.5 fl (7.4-10.4); Monocytes # 0.3 K/mm3 (0.1-1.0); Monocytes % 5.9 % (1.7-9.3); Neutrophils # 2.9 K/mm3 (1.8-7.8); Neutrophils % 64.9 % (37.0-80.0); Platelet Count 276 K/mm3 (142-424); Red Blood Count 5.04 M/mm3 (4.60-6.20); Red Cell Distribution Width 14.9 % (11.5-17.5); White Blood Count 4.5 K/mm3 (4.8-10.8)
[2024-05-14 18:17] LABS: Alanine Aminotransferase 30 U/L (12-78); Albumin Level 3.9 g/dl (3.5-5.0); Albumin/Globulin Ratio 1.6 (1.1-1.8); Alkaline Phosphatase 114 U/L (38-126); Aspartate Amino Transferase 38 U/L (17-59); Bilirubin,Total 0.9 mg/dl (0.2-1.3); Blood Urea Nitrogen 26 mg/dl (9-20); Calcium 8.7 mg/dl (8.4-10.2); Carbon Dioxide 28 mmol/L (22.0-30.0); Chloride 108 mmol/L (98-107); Chol/HDL Ratio 2.4 (1-3.5); Cholesterol 144 mg/dl (140-200); Estimated Glomerular Filt Rate 93 ml/min (>60); GFR (African American) 113 ML/MIN (>60); Globulin 2.5 g/dL (1.3-3.2); Glucose 66 mg/dl (74-100); HDL Cholesterol 59 mg/dl (40-60); Sodium 141 mmol/L (136-145); Total Protein,Serum 6.4 g/dl (6.3-8.2); Triglycerides 40 mg/dl (30-150); VLDL Cholesterol 8 mg/dL (0-40)
[2024-05-14 18:28] LABS: Direct LDL Cholesterol 63.54 mg/dL (100-129)
[2024-05-14 18:56] LABS: Prostate Specific Ag, Diagnost < 0.064 ng/ml (0.0-4.0)
== END 2024-05-14 23:59 | disposition home or self-care (01) ==
LOC: LAB.DROPOF 05-15 09:40
PROVIDERS: PCP Internal Medicine; Visit Provider Internal Medicine
DX: C61 Malignant neoplasm of prostate (principal); I10 Essential (primary) hypertension; E78.5 Hyperlipidemia, unspecified; M15.0 Primary generalized (osteo)arthritis; I71.40 Abdominal aortic aneurysm, without rupture, unspecified; I63.9 Cerebral infarction, unspecified
CPT/HCPCS: 80053; 80061; 84153; 85025

== ENCOUNTER 2024-11-11 07:36 | Outpatient (CLI) | payer MEDICARE, SELFPAY ==
[2024-11-11 08:02] LABS: Basophils # 0.1 K/mm3 (0-0.2); Basophils % 1.3 % (0.1-2.0); Eosinophils # 0.3 K/mm3 (0.0-0.4); Eosinophils % 6.5 % (0.1-12.0); Hematocrit 43.3 % (42.0-52.0); Hemoglobin 13.6 g/dL (14.1-18.0); Lymphocytes % 20.4 % (10-50); Mean Corpuscular HGB Conc 31.4 g/dL (31.8-35.4); Mean Corpuscular Hemoglobin 26.7 pg (27.0-31.2); Mean Corpuscular Volume 84.9 fl (80-94); Mean Platelet Volume 9.7 fl (7.4-10.4); Monocytes # 0.4 K/mm3 (0.1-1.0); Neutrophils % 63.4 % (37.0-80.0); Platelet Count 262 K/mm3 (142-424); Red Cell Distribution Width 14.6 % (11.5-17.5); White Blood Count 4.8 K/mm3 (4.8-10.8)
[2024-11-11 08:46] LABS: Alanine Aminotransferase 29 U/L (12-78); Albumin Level 4.6 g/dl (3.5-5.0); Albumin/Globulin Ratio 2.4 (1.1-1.8); Alkaline Phosphatase 152 U/L (38-126); Anion Gap 8.6 mEq/L (5-15); Aspartate Amino Transferase 36 U/L (17-59); Bilirubin,Total 0.9 mg/dl (0.2-1.3); Blood Urea Nitrogen 32 mg/dl (9-20); Calcium 9.1 mg/dl (8.4-10.2); Carbon Dioxide 29 mmol/L (22.0-30.0); Chloride 109 mmol/L (98-107); Chol/HDL Ratio 2.2 (1-3.5); Cholesterol 148 mg/dl (140-200); Estimated Glomerular Filt Rate 72 ml/min (>60); GFR (African American) 87 ML/MIN (>60); Globulin 1.9 g/dL (1.3-3.2); Glucose 90 mg/dl (74-100); HDL Cholesterol 67 mg/dl (40-60); Potassium 4.6 mmoL/L (3.5-5.1); Sodium 142 mmol/L (136-145); Total Protein,Serum 6.5 g/dl (6.3-8.2); Triglycerides 44 mg/dl (30-150); VLDL Cholesterol 9 mg/dL (0-40)
[2024-11-11 08:57] LABS: Direct LDL Cholesterol 55.72 mg/dL (100-129)
== END 2024-11-11 23:59 | disposition home or self-care (01) ==
LOC: LAB 07:37
PROVIDERS: PCP Internal Medicine; Visit Provider Internal Medicine
DX: E78.5 Hyperlipidemia, unspecified (principal); I10 Essential (primary) hypertension; M15.0 Primary generalized (osteo)arthritis
CPT/HCPCS: 36415; 80053; 80061; 85025

== ENCOUNTER 2025-01-22 10:55 | Outpatient (CLI) | payer MEDICARE, SELFPAY ==
--- NOTE | 2025-01-22 10:58 | XR_ITS ---
FINAL REPORT CLINICAL HISTORY: Cough, possible aspiration COMPARISON: 12/28/2023 FINDINGS: CHEST 2 VIEWS There are underlying emphysematous changes. No acute pulmonary density is present. No significant pleural effusion. There is no pneumothorax. The heart is normal in size. The mediastinum is unremarkable. IMPRESSION: Emphysema without acute process. Reviewed, Interpreted and Dictated by Fantasma Mcgovern MD Transcribed by Dulce Shafer Authenticated and [facility]
== END 2025-01-22 23:59 | disposition home or self-care (01) ==
LOC: RAD 10:56
PROVIDERS: PCP Internal Medicine; Visit Provider Internal Medicine
DX: J43.9 Emphysema, unspecified (principal)
CPT/HCPCS: 71046

== ENCOUNTER 2025-05-13 09:00 | Outpatient (CLI) | payer MEDICARE, SELFPAY ==
--- OUTSIDE RECORDS SUMMARY | 2025-03-23 10:45 | XMS_ITS | Encounter Summary ---
Author Organization [facility] Address [address] [place] [address] Care Team Providers Care Card Clothier Name Role Phone Kavon Alcantara MD Primary Care Provider [phone] Encounter Details Date Type Department Care Team (Latest Contact Info) Description 03/23/2025 10:45 AM EDT - 03/23/2025 11:59 PM EDT Hospital Encounter Cardiac Imaging [address] [place] [address] Implantable loop recorder present Discharge Disposition: Home or Self Care Social History Tobacco Use Types Packs/Day Years Used Date Smoking Tobacco: Former Cigarettes 2 25 0 09/03/1961 - 1981 Passive Smoke Exposure: Never Smokeless Tobacco: Never Alcohol Use Standard Drinks/Week Comments Never 0 (1 standard drink = 0.6 oz pur e alcohol) Humiliation, Afraid, Rape, and Kick questionnair e Answer Date Recorded Within the last year, have y ou been afraid of your partner or ex-partner? No 12/31/2023 Within the last year, have y ou been humiliated or emotionally abused in other ways by your partner or ex-partner? No Within the last year, have y ou been kicked, hit, slapped, or otherwise physically hurt by your partner or ex-partner? No 12/31/2023 Within the last year, have y ou been raped or forced to have any kind of sexual activity by your partner or ex-partner? No 12/31/2023 PHQ-2 Answer Date Recorded Patient Health Questionnaire-2 Score 0 01/05/2025 Hunger Vital Sign Answer Date Recorded Within the past 12 months, y ou worried that your food would run out before you got the money to buy more. Never true 12/31/19 24 Within the past 12 months, t he food you bought just didn't last and you didn't have money to get more. Never true 12/31/2023 PRAPARE - Transportation Answer Date Re corded In the past 12 months, has l ack of transportation kept you from medical appointments or from getting medications? No 12/03 In the past 12 months, has l ack of transportation kept you from meetings, work, or from getting things needed for daily living? No 12/31/2023 Housing Stability Vital Sign Answer Paul e Recorded In the last 12 months, was t here a time when you were not able to pay the mortgage or rent on time? No 12/31/2023 In the last 12 months, how many places have you lived? 1 12/31/2023 In the last 12 months, was t here a time when you did not have a steady place to sleep or slept in a group home (including now)? No 12/31/2023 PHQ-9 Answer Date Recorded Patient Health Questionnaire-9 Score 0 01/05/2025 AUDIT-C Answer Date Recorded Frequency of Alcohol Consumption Not on file 02/11/2025 Q2: How many drinks containi ng alcohol do you have on a typical day when you are drinking? Patient does not drink Frequency of Binge Drinking Not on file 02/01 CAGE ASSESSMENT Answer Date Recorded Cage unable to access Not on file 12/29/2023 Cage max number of drinks Not on file 2023 Cage Beverages a week Not on file 12/29/2023 Have you ever felt you should CUT down on your d rinking? 0 12/29/2023 Have you been ANNOYED by people criticizing your drinking? 0 12/29/2023 Have you felt GUILTY about your drinking? 0 12/29/2023 Have you had a drink first t bautista in the morning (EYE-LAND AGENT) to steady your nerves or to get rid of a hangover? 0 12/29/2023 CAGE Questionnaire Score 0 024 Utilities Answer Date Recorded In the past 12 months has th e [place] [employer], [employer], oil, or water [employer] threatened to shut off services in your home? No 12/31/2023 PHQ-2A Answer Date Recorded Patient Health Questionnaire-2 Score 0 01/15/2023 Sex and Gender Information Value Date Recorded Sex Assigned at Male 06/08/2022 6:53 AM EDT Legal Sex Male 8:39 PM EDT Gender Identity Male 06/08/2022 6:53 AM EDT Sexual Orientation Not on file documented as of this encounter Medications at Time of Discharge apixaban (Eliquis) 5 MG tabletIndications:P aroxysmal atrial fibrillation (CMS/HCC) Take 1 tablet by mouth 2 times a day. 180 tablet 3 02/24/2025 atorvastatin (Lipitor) 40 MG tablet Take 1 tablet (40 mg) by mouth every night. 30 tablet 11 12/31/2023 diclofenac (Voltaren) 75 MG EC tablet Take 1 tablet (75 mg total) by mouth 2 (two) times a day. Resume in 5 days (06/14/22) 06/09/2022 documented as of this encounter Plan of Treatment Upcoming Encounters Date Type Department Care Team (Late st Contact Info) Description 07/15/2025 12:40 PM EST Office Visit [facility] [place] [facility] [address] [place] [address] Annemarie Arita PA [address] [place] [address] 10/29/2025 1:00 PM EST Office Visit [facility] [address] [place] [phone] Mickie Swanson MD [address] [place] [address] documented as of this encounter Procedures Procedure Name Priority Date/Time Associated Diagnosis Comments CARDIAC DEVICE CHECK - REMOTE - LOOP RECORDER (ILR) Routine 03/23/2025 11:02 AM EDT Implantable loop recorder present documented in this encounter Results * CARDIAC DEVICE CHECK - REMOTE - LOOP RECORDER (ILR) (03/23/2025 11:02 AM EDT) Anatomical Region Laterality Modality Other Narrative 03/23/2025 5:14 PM EDT Implantable loop recorder (ILR) interrogation. Battery remaining in service adequate. EGM's reviewed against indication for implant and diagnosis, found to be unremarkable. No new events since last interrogation and reset. Presenting rhythm is sinus with PACs. Mariana Valadez Raúldayyovanny PIZANO CV IMPLANTABLE CARDIAC DEV ICE PROCEDURES Final Result documented in this encounter Visit Diagnoses Diagnosis Implantable loop recorder present documented in this encounter Additional Health Concerns Assessment Noted Time PHQ-9 Depression Total Score: 0 01/06/20 25 12:56 PM EDT A fall risk assessment has been complete d for the patient 02/11/2025 9:50 AM EDT A Body Mass Index follow-up plan has been documented for the patient 02/18/2025 4:09 PM EDT documented as of this encounter Care Teams Card Clothier Relationship Specialty Start Date End Date Kavon Alcantara MD [address] [place] [address] [address] [place] [address] PCP - General 01/14/21 documented as of this encounter
--- OUTSIDE RECORDS SUMMARY | 2025-03-24 07:45 | XMS_ITS | Encounter Summary ---
Author Organization [facility] Address [address] [place] [address] Care Team Providers Care Source Inspector Name Role Phone Kavon Alcantara MD Primary Care Provider [phone] Encounter Details Date Type Department Care Team (Late st Contact Info) Description 03/24/2025 7:45 AM EDT Ancillary Procedure [facility] [address] [place] [phone] Social History Tobacco Use Types Packs/Day Years [...] place to sleep or slept in a mcfp (including now)? No 12/31/2023 PHQ-9 Answer Date [...] drink first t bautista in the morning (EYE-MICROBIOLOGY TECHNICIAN) to steady your nerves or to get rid of a hangover? 0 12/29/2023 CAGE Questionnaire Score 0 024 Utilities Answer Date Recorded In the past 12 months has th e electric, gas, oil, or water company threatened to shut off services in your home? No 12/31/2023 PHQ-2A Answer Date Recorded Patient Health Questionnaire-2 Score 0 01/15/2023 Sex and Gender Information Value Date Recorded Sex Assigned at Male 06/08/2022 6:53 AM EDT Legal Sex Male 8:39 PM EDT Gender Identity Male 06/08/2022 6:53 AM EDT Sexual Orientation Not on file documented as of this encounter Plan of Treatment Upcoming Encounters Date Type Department Care Team (Late st Contact Info) Description 07/15/2025 12:40 PM EST Office Visit [facility] [place] [facility] [address] [place] [address] Annemarie Arita PA [address] [place] [address] 10/29/2025 1:00 PM EST Office Visit [facility] [address] [place] [address] Mickie Swanson MD [address] [place] [address] documented as of this encounter Procedures Procedure Name Priority Date/Time Associated Diagnosis Comments OCT, RETINA - OU - BOTH EYES Routine 03/24/2025 3:44 PM EDT Traumatic brain injury with loss of consciousness, subsequent encounter Optic papillitis, bilateral documented in this encounter Results * OCT, Retina - OU - Both Eyes (03/24/2025 3:44 PM EDT) Anatomical Region Laterality Modality Head Optical Coherenc e Tomography Narrative 03/24/2025 3:44 PM EDT Right Eye Quality was good. Left Eye Quality was good. 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 us Mickie Swanson MD OPHTH TOMOGRAPHY Final Resul t documented in this encounter Visit Diagnoses Not on filedocumented in this encounter Additional Health Concerns Assessment Noted Time PHQ-9 Depression Total Score: 0 01/06/20 25 12:56 PM EDT A fall risk assessment has been complete d for the patient 02/11/2025 9:50 AM EDT A Body Mass Index follow-up plan has been documented for the patient 02/18/2025 4:09 PM EDT documented as of this encounter Care Teams Source Inspector Relationship Specialty Start Date End Date Kavon Alcantara MD [address] [place] [address] [address] [place] [id number] PCP - General 01/14/21 documented as of this encounter
--- OUTSIDE RECORDS SUMMARY | 2025-03-24 07:45 | XMS_ITS | Encounter Summary ---
Author Organization [facility] Address [address] [place] [address] Care Team Providers Care Assistant Superintendent Name Role Phone Kavon Alcantara MD Primary Care Provider [phone] Encounter Details Date Type Department Care Team (Late st Contact Info) Description 03/24/2025 7:45 AM EDT Ancillary Procedure [facility] [address] [place] [phone] Social History Tobacco Use Types Packs/Day [...] place to sleep or slept in a skilled nursing (including now)? No 12/31/2023 PHQ-9 Answer Date [...] drink first t bautista in the morning (EYE-UNION CONTRACT REPRESENTATIVE) to steady your nerves or to get [...] Description 07/15/2025 12:40 PM EST Office Visit [facility] [place] [facility] [address] [place] [address] Annemarie Arita PA [address] [place] [address] 10/29/2025 1:00 PM EST Office Visit [facility] [address] [place] [address] Mickie Swanson MD [address] [place] [address] documented as of this encounter Procedures Procedure Name Priority Date/Time Associated Diagnosis Comments AUTOMATED VISUAL FIELD, EXTENDED - OU - BOTH EYES Routine 03/24/2025 3:44 PM EDT Traumatic brain injury with loss of consciousness, subsequent encounter Optic papillitis, bilateral documented in this encounter Results * Automated Visual Field, Extended - OU - Both Eyes (03/24/2025 3:44 PM EDT) Anatomical Region Laterality Modality Head Visual Field Narrative 03/24/2025 3:44 PM EDT Right Eye Threshold was 24-2. Strategy was RAZIA. Reliability was borderline. Foveal threshold was normal. Left Eye Threshold was 24-2. Strategy was RAZIA. Reliability was good. Foveal threshold was normal. Notes OD few non specific nasal defects, borderline changes, MD of - 2.30 db OS scattered defect MD of - 2.26 db us Mickie Swanson MD OPHTH VISUAL FIELD Final Res ult documented in this encounter Visit Diagnoses Not [...] documented as of this encounter Care Teams Assistant Superintendent Relationship Specialty Start Date End Date Kavon Alcantara MD [address] [place] [address] [address] [place] [address] PCP - General 01/14/21 documented as of this encounter
--- OUTSIDE RECORDS SUMMARY | 2025-03-24 07:50 | XMS_ITS | Encounter Summary ---
Author Organization [facility] Address [address] [place] [address] Care Team Providers Care Steak Tenderizer Machine Name Role Phone Kavon Alcantara MD Primary Care Provider [phone] Encounter Details Date Type Department Care Team (Late st Contact Info) Description 03/24/2025 7:50 AM EDT Ancillary Procedure [facility] [address] [place] [phone] Social History Tobacco Use Types Packs/Day [...] place to sleep or slept in a half-way (including now)? No 12/31/2023 PHQ-9 Answer Date [...] drink first t bautista in the morning (EYE-RESTAURANT HOST) to steady your nerves or to get [...] Description 07/15/2025 12:40 PM EST Office Visit [facility] [place] [facility] [address] [place] [address] Annemarie Arita PA [address] [place] [address] 10/29/2025 1:00 PM EST Office Visit [facility] [address] [place] [address] Mickie Swanson MD [address] [place] [address] documented as of this encounter Procedures Procedure Name Priority Date/Time Associated Diagnosis Comments OCT, OPTIC NERVE - OU - BOTH EYES Routine 03/24/2025 3:45 PM EDT Traumatic brain injury with loss of consciousness, subsequent encounter Optic papillitis, bilateral documented in this encounter Results * OCT, Optic Nerve - OU - Both Eyes (03/24/2025 3:45 PM EDT) Anatomical Region Laterality Modality Head Optical Coherenc e Tomography Narrative 03/24/2025 3:45 PM EDT Right Eye Images reviewed and comparison made to baseline, Images reviewed. To assess optic nerve function and for use in future follow-up. Reliability: good and adequate. Left Eye Images reviewed and comparison made to baseline, Images reviewed. To assess optic nerve function and for use in future follow-up. Reliability: good and adequate. Notes Right eye (OD) - average RNFL measures 104 microns, IT atrophy, stable from previous exam Left eye (OS) - average RNFL measures 98 microns, stable from previous exam Both eyes (OU) ganglion cell analysis is intact mostly, temp loss morris us Mickie Swanson MD OPHTH TOMOGRAPHY Final [...] documented as of this encounter Care Teams Steak Tenderizer Machine Relationship Specialty Start Date End Date Kavon Alcantara MD [address] [place] [address] [address] [place] [address] PCP - General 01/14/21 documented as of this encounter
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
--- OUTSIDE RECORDS SUMMARY | 2025-04-21 09:55 | XMS_ITS | Encounter Summary ---
Author Organization [facility] Address [address] [place] [address] Care Team Providers Care Thread Checker Name Role Phone Kavon Alcantara MD Primary Care Provider [phone] Encounter Details Date Type Department Care Team (Latest Contact Info) Description 04/21/2025 9:55 AM EDT - 04/21/2025 11:59 PM EDT Hospital Encounter Cardiac Imaging [address] [place] [address] Encounter for loop recorder check Discharge Disposition: Home or Self Care Social [...] place to sleep or slept in a penitentiary (including now)? 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 0 12/29/2023 CAGE Questionnaire Score 0 024 Utilities Answer Date Recorded In the past 12 months has th e [employer], gas, oil, or water company threatened to [...] Description 07/15/2025 12:40 PM EST Office Visit [facility] [place] [address] [facility] [place] [address] Annemarie Arita PA [address] [place] [address] 10/29/2025 1:00 PM EST Office Visit [facility] [address] [facility] [place] [phone] Mickie Swanson MD [address] [place] [address] documented as of this encounter Procedures Procedure Name Priority Date/Time Associated Diagnosis Comments CARDIAC DEVICE CHECK - REMOTE - LOOP RECORDER (ILR) Routine 04/21/2025 11:12 AM EDT Encounter for loop recorder check documented in this encounter Results * CARDIAC DEVICE CHECK - REMOTE - LOOP RECORDER (ILR) (04/21/2025 11:12 AM EDT) Anatomical Region Laterality Modality Other Narrative 04/21/2025 11:18 AM EDT Implantable loop recorder (ILR) interrogation. Battery remaining in service adequate. EGM's reviewed against indication for implant and diagnosis, found to be unremarkable. No new events since last interrogation and reset. Presenting rhythm is sinus Mariana Valadez Raúldaymalikpaige HARINDER CV IMPLANTABLE CARDIAC DEV ICE PROCEDURES Final Result documented in this encounter Visit Diagnoses Diagnosis Encounter for loop recorder check documented in this encounter Additional Health Concerns Assessment Noted Time PHQ-9 Depression Total Score: 0 01/06/20 25 12:56 PM EDT A fall risk assessment has been complete d for the patient 02/11/2025 9:50 AM EDT A Body Mass Index follow-up plan has been documented for the patient 02/18/2025 4:09 PM EDT documented as of this encounter Care Teams Thread Checker Relationship Specialty Start Date End Date Kavon Alcantara MD [address] [place] [address] [address] [place] [facility] PCP - General 01/14/21 documented as of this encounter
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
[2025-05-13 15:37] LABS: Alanine Aminotransferase 29 U/L (12-78); Albumin Level 4.4 g/dl (3.5-5.0); Albumin/Globulin Ratio 2.0 (1.1-1.8); Alkaline Phosphatase 133 U/L (38-126); Anion Gap 12.9 mEq/L (5-15); Aspartate Amino Transferase 36 U/L (17-59); Bilirubin,Total 1.0 mg/dl (0.2-1.3); Blood Urea Nitrogen 23 mg/dl (9-20); Calcium 9.1 mg/dl (8.4-10.2); Carbon Dioxide 26 mmol/L (22.0-30.0); Chloride 105 mmol/L (98-107); Cholesterol 144 mg/dl (140-200); Creatinine,Serum 0.90 mg/dl (0.66-1.25); Estimated Glomerular Filt Rate 81 ml/min (>60); GFR (African American) 98 ML/MIN (>60); Globulin 2.2 g/dL (1.3-3.2); Glucose 75 mg/dl (74-100); HDL Cholesterol 55 mg/dl (40-60); Potassium 4.9 mmoL/L (3.5-5.1); Sodium 139 mmol/L (136-145); Total Protein,Serum 6.6 g/dl (6.3-8.2); Triglycerides 50 mg/dl (30-150)
[2025-05-13 16:14] LABS: Prostate Specific Ag, Diagnost < 0.064 ng/ml (0.0-4.0)
--- OUTSIDE RECORDS SUMMARY | 2025-05-15 09:48 | XMS_ITS | Encounter Summary ---
Author Organization [facility] Address [address] [place] [address] Care Team Providers Care Client Retention Specialist Name Role Phone Kavon Alcantara MD Primary Care Provider [phone] Encounter Details Date Type Department Care Team (Late st Contact Info) Description 03/24/2025 Results Follow-Up [facility] [address] [place] [address] Mickie Swanson MD [address] [facility] [address] [place] [address] Social History Tobacco Use Types Packs/Day Years [...] place to sleep or slept in a usp (including now)? No 12/31/2023 PHQ-9 Answer Date [...] drink first t bautista in the morning (EYE-ENGLISH PROFESSOR) to steady your nerves or to get [...] Description 07/15/2025 12:40 PM EST Office Visit [facility] [place] [facility] [address] [facility] [place] [address] Annemarie Arita PA [address] [place] [address] 10/29/2025 1:00 PM EST Office Visit [facility] [address] [place] [address] Mickie Swanson MD [address] [place] [address] documented as of this encounter Visit Diagnoses Not on filedocumented [...] documented as of this encounter Care Teams Client Retention Specialist Relationship Specialty Start Date End Date Kavon Alcantara MD [address] [facility] [address] [place] [address] PCP - General 01/14/21 documented as of this encounter
--- OUTSIDE RECORDS SUMMARY | 2025-05-15 09:48 | XMS_ITS | Encounter Summary ---
Author Organization [facility] Address [address] [place] [address] Care Team Providers Care Unit Receptionist Name Role Phone Kavon Alcantara MD Primary Care Provider Encounter Details Date Type Department Care Team (Latest Contact Info) Description 03/24/2025 Travel Social History Tobacco Use Types Packs/Day Years [...] place to sleep or slept in a intermediate (including now)? No 12/31/2023 PHQ-9 Answer Date [...] drink first t bautista in the morning (EYE-SENIOR ADVISORY) to steady your nerves or to get [...] Description 07/15/2025 12:40 PM EST Office Visit [facility] [address] [place] [address] Annemarie Arita PA [address] [place] [address] 10/29/2025 1:00 PM EST Office Visit [facility] [address] [facility] [address] [place] [address] Mickie Swanson MD [address] [place] [address] documented as of this encounter [...] documented as of this encounter Care Teams Unit Receptionist Relationship Specialty Start Date End Date Kavon Alcantara MD [facility] [place] [address] PCP - General 01/14/21 documented as of this encounter
--- OUTSIDE RECORDS SUMMARY | 2025-05-15 09:48 | XMS_ITS | Encounter Summary ---
Author Organization [facility] Address [address] [place] [address] Care Team Providers Care Database Coordinator Name Role Phone Kavon Alcantara MD Primary Care Provider [phone] Encounter Details Date Type Department Care Team (Latest Contact Info) Description 04/21/2025 Travel Social History Tobacco Use Types Packs/Day [...] place to sleep or slept in a prison (including now)? No 12/31/2023 PHQ-9 Answer Date [...] drink first t bautista in the morning (EYE-SUPERVISOR SHUTTLE FITTING) to steady your nerves or to get [...] Description 07/15/2025 12:40 PM EST Office Visit [facility] [place] [facility] [address] [place] [address] Annemarie Arita PA [address] [place] [address] 10/29/2025 1:00 PM EST Office Visit [facility] [address] [facility] [place] [address] Mickie Swanson MD [address] [place] [address] documented as of this encounter [...] documented as of this encounter Care Teams Database Coordinator Relationship Specialty Start Date End Date Kavon Alcantara MD [facility] [place] [address] PCP - General 01/14/21 documented as of this encounter
--- OUTSIDE RECORDS SUMMARY | 2025-05-15 09:48 | XMS_ITS | Encounter Summary ---
Author Organization [facility] Address [address] [place] [address] Care Team Providers Care Inside Barrel Polisher Name Role Phone Kavon Alcantara MD Primary Care Provider [phone] Encounter Details Date Type Department Care Team (Latest Contact Info) Description 04/25/2025 Travel Social History Tobacco Use Types Packs/Day [...] place to sleep or slept in a retirement (including now)? No 12/31/2023 PHQ-9 Answer Date [...] drink first t bautista in the morning (EYE-TOMOGRAPHIC TECH) to steady your nerves or to get [...] Description 07/15/2025 12:40 PM EST Office Visit [facility] [address] [place] [address] Annemarie Arita PA [address] [place] [address] 10/29/2025 1:00 PM EST Office Visit [facility] [address] [facility] [place] [address] Mickie Swanson MD [address] [place] [address] documented as of this encounter [...] documented as of this encounter Care Teams Inside Barrel Polisher Relationship Specialty Start Date End Date Kavon Alcantara MD [facility] [place] [address] PCP - General 01/14/21 documented as of this encounter
--- OUTSIDE RECORDS SUMMARY | 2025-05-15 09:48 | XMS_ITS | Encounter Summary ---
Author Organization [facility] Address [address] [place] [address] Care Team Providers Care It Service Technician Name Role Phone Kavon Alcantara MD Primary Care Provider [phone] Encounter Details Date Type Department Care Team (Latest Contact Info) Description 05/01/2025 Travel Social History Tobacco Use Types Packs/Day [...] place to sleep or slept in a custodial (including now)? No 12/31/2023 PHQ-9 Answer Date [...] drink first t bautista in the morning (EYE-DIRECTOR OF DESIGN) to steady your nerves or to get [...] Description 07/15/2025 12:40 PM EST Office Visit [facility] [address] [place] [address] Annemarie Arita PA [address] [place] [address] 10/29/2025 1:00 PM EST Office Visit [facility] [address] [facility] [place] [address] Mickie Sawnson MD [address] [place] [address] documented as of this encounter [...] documented as of this encounter Care Teams It Service Technician Relationship Specialty Start Date End Date Kavon Alcantara MD [facility] [place] [address] PCP - General 01/14/21 documented as of this encounter
--- OUTSIDE RECORDS SUMMARY | 2025-05-15 09:48 | XMS_ITS | Clinical Summary ---
Author Organization [facility] Address [address] [place] [address] Care Team Providers Care Electrical And Radio Mechanic Name Role Phone Kavon Alcantara MD Primary Care Provider [phone] Allergies Active Allergy Reactions Criticality Noted Date Comments Penicillins Itching,Swelling,Hives High 06/17/2019 Medications diclofenac (Voltaren) 75 MG EC tablet Take 1 tablet (75 mg total) by mouth 2 (two) times a day. Resume in 5 days (06/14/22) 06/09/2022 Active atorvastatin (Lipitor) 40 MG tablet Take 1 tablet (40 mg) by mouth every night. 30 tablet 11 12/31/2023 Active apixaban (Eliquis) 5 MG tabletIndications :Paroxysmal atrial fibrillation (CMS/HCC) Take 1 tablet by mouth 2 times a day. 180 tablet 3 02/24/2025 Active Active Problems Problem Noted Date Diagnosed Date Optic papillitis, bilateral 03/24/2025 Optic neuropathy, bilateral 03/24/2025 Presbyopia of both eyes 09/17/2024 Acute ischemic stroke 03/19/2024 Binocular vision disorder with diplopia 20 24 Lung mass 12/31/2023 Cerebrovascular accident 12/29/2023 Abnormal gait 12/29/2023 Unexplained visual loss 08/02/2023 Traumatic brain injury with loss of consciousnes s 08/02/2023 Bilateral posterior capsular opacification 08/02 Pseudophakia of both eyes 08/02/2023 Other localized visual field defect, bilateral 1 10/02/2022 Hyperlipidemia 06/09/2022 Overview (06/09/2022): Continue statin Follow up PCP Malignant neoplasm of prostate 06/09/2022 Overview (06/09/2022): Per patient history Follow up with primary provider No home medications Postoperative pain 06/09/2022 Overview (06/09/2022): Continue acetaminophen 500 mg q8h as needed for pain No opioid requirement postop Arthritis 06/09/2022 Overview (06/09/2022): Ok to resume home diclofenac 75 mg twice daily on 06/14/22 Follow up PCP Abdominal aortic aneurysm (AAA) without rupture 05/05/2022 Overview (06/09/2022): 06/08/22: S/P EVAR (Dr Concepcion) POD 1: ASA 81 mg daily, Home statin Pulse Exam: DP and PT signals Bilateral groin surgical sites (right and left): CDI, no s/s of hematoma or bleeding or inflammation. 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 07/21/2019 Encounters Date Type Department Care Team Description 05/01/2025 11:15 AM EDT Office Visit [facility] [address] [place] [address] Terell Keenan, OD Traumatic brain injury with loss of consciousness, subsequent encounter (Primary Dx); Optic papillitis, bilateral; Unexplained visual loss; Pseudophakia of both eyes; Regular astigmatism of both eyes; Presbyopia of both eyes 05/01/2025 Travel 04/25/2025 Travel 04/21/2025 9:55 AM EDT - 04/21/2025 11:59 PM EDT Hospital Encounter Cardiac Imaging [address] [place] [address] Encounter for loop recorder check Discharge Disposition: Home or Self Care 04/21/2025 Travel 04/03/2025 Telephone [facility] [address] [place] [address] Mickie Swanson MD HCN - Patient Message 03/24/2025 1:00 PM EDT Office Visit [facility] [address] [place] [address] Mickie Swanson MD Traumatic brain injury with loss of consciousness, subsequent encounter (Primary Dx); Optic papillitis, bilateral; Unexplained visual loss; Pseudophakia of both eyes; Other localized visual field defect, bilateral; Presbyopia of both eyes; Binocular vision disorder with diplopia; Optic neuropathy, bilateral 03/24/2025 7:50 AM EDT Ancillary Procedure [facility] [address] [place] [address] 03/24/2025 7:45 AM EDT Ancillary Procedure [facility] [address] [place] [address] 03/24/2025 7:45 AM EDT Ancillary Procedure [facility] [address] [place] [address] 03/24/2025 Results Follow-Up [facility] [address] [place] [address] Mickie Swanson MD 03/24/2025 Travel 03/23/2025 10:45 AM EDT - 03/23/2025 11:59 PM EDT Hospital Encounter Cardiac Imaging [address] [place] [address] Implantable loop recorder present Discharge Disposition: Home or Self Care 03/23/2025 Travel 02/24/2025 [facility] [place] [address] [place] [address] Annemarie Arita PA Paroxysmal atrial fibrillation (CMS/HCC) 02/20/2025 3:15 PM EDT - 02/20/2025 11:59 PM EDT Hospital Encounter Cardiac Imaging [address] [place] [address] Encounter for loop recorder check Discharge Disposition: Home or Self Care 02/20/2025 Travel from Last 3 Months Immunizations Immunization Administration Dates Next Due Influenza, High-dose, Split Virus, Trivalent, Injectable, preservative free 06/24/2024 Influenza, high-dose, quadrivalent 06/26/2020,,09/13/2016 Influenza, injectable, quadr ivalent, preservative free 06/29/2023 Rsv, Bivalent, Protein Subun it Rsvpref, Diluent Reconstituted, 0.5mL, PF 06/19/2023 Rsvpref, Recombinant, Protei n Subunit, Adjuvent 07/21/2024 TD (adult), 2 Lf tetanus tox oid, preservative free, adsorbed 11/07/1996 Zoster, Recombinant 05/28/2020,03/27/2020 Family History Medical History Relation Name Comments Anesthesia problems Neg Hx Malig Hyperthermia Neg Hx Social History Tobacco Use Types Packs/Day Years [...] place to sleep or slept in a fdc (including now)? No 12/31/2023 PHQ-9 Answer Date [...] drink first t bautista in the morning (EYE-SOLAR ENERGY SYSTEMS ENGINEER) to steady your nerves or to get [...] AM EDT Sexual Orientation Not on file Last Filed Vital Signs Vital Sign Reading Time Taken Comments Blood Pressure 125/71 02/11/2025 9:50 AM EDT Pulse 44 02/11/2025 9:50 AM EDT Temperature 36.2 C (97.2 F) 02/11/2025 9:47 AM EDT Respiratory Rate 14 05/08/2024 10:0 5 AM EDT Oxygen Saturation 97% 01/05/2025 12: 55 PM EDT Inhaled Oxygen Concentration - - Weight 65.2 kg (143 lb 11.8 oz) 02/11/2025 9:47 AM EDT Height 177.8 cm (5' 10 ) 01/05/2025 12: 55 PM EDT Body Mass Index 20.62 01/05/2025 12:55 PM EDT Plan of Treatment Upcoming Encounters Date Type Department Care Team (Late st Contact Info) Description 07/15/2025 12:40 PM EST Office Visit [facility] [place] [address] [facility] [place] [address] Annemarie Arita PA [address] [place] [address] 10/29/2025 1:00 PM EST Office Visit [facility] [address] [place] [address] Mickie Swanson MD [address] [place] [address] Health Maintenance Due Date Last Done Comments [facility]-Medicare Annual Wellness (AWV) 1945 [facility]-Infant/Child/Adol SDOH Screenings 1945 [facility]- SDOH Screenings 11/15/1961 [facility]-Adult SDOH Screenings 11/15/1961 [facility]-Pneumococcal Vaccine: 50+ Years (1 of 2 - PCV) 11/15/1962 [facility]-DTaP,Tdap,and Td Vaccines (1 - Tdap) 11/08/1996 11/07/1996 [id number] Vaccine (7 - Moderna risk season) 2025 06/24/2024, 06/19/2023, 07/05/2022, Additional history exists [facility]-Influenza Vaccine (#1) 05/04/202506/24, 06/29/2023, 06/26/2020, Additional history exists [facility]-Depression Screening 01/05/2026 01/05/2025, 01/2025 [facility]-Zoster Vaccines Completed 05/28/2020, [facility]-RSV Vaccine: 60+ Years or Completed 07/21/2024, 06/19/2023 HPV Vaccines Aged Out No longer eligi ble based on patient's age to complete this topic [facility]-HIB Vaccines Aged Out No longer e ligible based on patient's age to complete this topic [facility]-Hepatitis A Vaccines Aged Out No longer eligible based on patient's age to complete this topic [facility]-IPV Vaccines Aged Out No longer e ligible based on patient's age to complete this topic [facility]-Rotavirus Vaccines Aged Out No lo nger eligible based on patient's age to complete this topic Medical Devices Implanted Type Area Shellfish Weigher Device Identifier Shelf Expiration Date Model / Serial / Lot Linqii Implanted:Qty: 1 on 04/16/2024 by Neli Mauro APRN at [facility] Pacemaker Medtronic 07/05/2025 [id number] / [id number] / 16mm (Prox) X 20mm (Distal) X 93mm Total Covered, Endurant Ii Aaa Contralateral Limb Stent Graft Implanted:Qty: 1 on 06/08/2022 by Ignacio Concepcion MD at [facility] Stent Left: Arterial 12/08/2023 [id number] / / [id number] 16mm (Prox) X 16mm (Distal) X 93mm Total Covered, Endurant Ii Aaa Contralateral Limb Stent Graft Implanted:Qty: 1 on 06/08/2022 by Ignacio Concepcion MD at [facility] Stent Right: Arterial 02/28/2024 [id number] / / [id number] Endurant Iis Bifurcated [id number] - [id number] Implanted:Qty: 1 on 06/13/2022 by Ignacio Concepcion MD at [facility] Medtronic [facility]-[id number] 04/09/2024 [id number] / [id number] / [id number] Procedures Procedure Name Priority Date/Time Associated Diagnosis Comments CARDIAC DEVICE CHECK - REMOTE - LOOP RECORDER (ILR) Routine 04/21/2025 11:12 AM EDT Encounter for loop recorder check OCT, OPTIC NERVE - OU - BOTH [...] of consciousness, subsequent encounter Optic papillitis, bilateral CARDIAC DEVICE CHECK - REMOTE - LOOP RECORDER (ILR) Routine 03/23/2025 11:02 AM EDT Implantable loop recorder present CARDIAC DEVICE CHECK - REMOTE - LOOP RECORDER (ILR) Routine 02/20/2025 4:09 PM EDT Encounter for loop recorder check from Last 3 Months Results * CARDIAC DEVICE CHECK - REMOTE - LOOP RECORDER (ILR) (04/21/2025 11:12 AM EDT) Only the most recent of3 resultswithin the time period is included. Anatomical Region Laterality Modality Other Narrative 04/21/2025 11:18 AM EDT Implantable loop recorder (ILR) interrogation. Battery remaining in service adequate. EGM's reviewed against indication for implant and diagnosis, found to be unremarkable. No new events since last interrogation and reset. Presenting rhythm is sinus Mariana Stanton APRN CV IMPLANTABLE CARDIAC DEV ICE PROCEDURES Final Result * OCT, Optic Nerve - OU - [...] analysis is intact mostly, temp loss morris Mickie Swanson MD OPHTH TOMOGRAPHY Final Resul t * OCT, Retina - OU - Both Eyes (03/24/2025 3:44 PM EDT) Anatomical Region Laterality Modality Head Optical Coherenc e Tomography Narrative 03/24/2025 3:44 PM EDT Right Eye Quality was good. Left Eye Quality was good. 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 Yes * Full Code Date Activated Date Inactivated Comments 06/08/2022 9:57 AM 06/09/2022 3:37 PM Question Answer Comments Patient has decision-making capacity? Yes Care Teams Electrical And Radio Mechanic Relationship Specialty Start Date End Date Kavon Alcantara MD [address] [facility] [address] [place] [address] PCP - General 01/14/21
--- OUTSIDE RECORDS SUMMARY | 2025-05-15 09:48 | XMS_ITS | Encounter Summary ---
Author Organization [facility] Address [address] [place] [address] Care Team Providers Care Dubbing Machine Operator Name Role Phone Kavon Alcantara MD Primary Care Provider [phone] Reason for Visit * Reason Onset Date Comments HCN - Patient Message 04/03/2025 Encounter Details Date Type Department Care Team (Late st Contact Info) Description 04/03/2025 [facility]phone [facility] [address] [place] [address] Mickie Swanson MD [address] [place] [address] HCN - Patient Message Social History Tobacco Use Types Packs/Day Years [...] drink first t bautista in the morning (EYE-TAG AND LABEL CUTTER) to steady your nerves or to get [...] as of this encounter Miscellaneous Notes * Telephone Encounter - Nae Carrillo - 04/03/2025 12:23 PM EDT Clinical Concern/Question Reason for Call: Patient returning missed call from the clinic Best contact number: [phone] Optimal time of day to reach caller: ANYTIME Additional comments/information from caller: Note: Please do not reply to this message. Follow-up communication and further actions as a result of this message need to be communicated with the patient directly, if the patient is not active onMyChart. If the patient is active on MyChart, they will receive notification of the communication/outcome via MyChart. documented in this encounter Plan of Treatment Upcoming Encounters Date Type Department Care Team (Late st Contact Info) Description 07/15/2025 12:40 PM EST Office Visit [facility] [place] [address] [place] [address] Annemarie Arita PA [address] [place] [address] 10/29/2025 1:00 PM EST Office Visit [facility] [address] [place] [address] Mickie Swanson MD [address] [facility] [address] [place] [address] documented as of this encounter [...] documented as of this encounter Care Teams Dubbing Machine Operator Relationship Specialty Start Date End Date Kavon Alcantara MD [address] [place] [address] [address] [facility] [place] [facility] PCP - General 01/14/21 documented as of this encounter
--- OUTSIDE RECORDS SUMMARY | 2025-05-15 09:48 | XMS_ITS | Encounter Summary ---
Author Organization [facility] Address [address] [place] [address] Care Team Providers Care Engineering Program Analyst Name Role Phone Kavon Alcantara MD Primary Care Provider [phone] Encounter Details Date Type Department Care Team (Latest Contact Info) Description 03/23/2025 Travel Social History Tobacco Use Types Packs/Day [...] place to sleep or slept in a mcc (including now)? No 12/31/2023 PHQ-9 Answer Date [...] drink first t bautista in the morning (EYE-COMMERCIAL REAL ESTATE AGENT) to steady your nerves or to [...] Description 07/15/2025 12:40 PM EST Office Visit [facility] [place] [facility] [address] [place] [address] Annemarie Arita PA [address] [place] [address] 10/29/2025 1:00 PM EST Office [facility] [address] [facility] [place] [address] Mickie Swanson MD [address] [place] [address] documented as of this encounter [...] documented as of this encounter Care Teams Engineering Program Analyst Relationship Specialty Start Date End Date Kavon Alcantara MD [facility] [place] [address] PCP - General 01/14/21 documented as of this encounter
--- OUTSIDE RECORDS SUMMARY | 2025-05-15 09:48 | XMS_ITS | Clinical Summary ---
Author Organization [facility] Address [address] [place] [id number] Care Team Providers Care Audio Video Repairer Name Role Phone Kavon Alcantara MD Primary Care Provider [phone] Allergies Active Allergy Reactions Criticality Noted Date Comments Penicillins Rash Low 07/07/2019 RASH Medications atorvastatin (LIPITOR) 20 MG tablet Take 20 mg by mouth Every Night. Active diclofenac-miSO PROStol (ARTHROTEC 75) 75-0.2 MG EC tablet Take 1 tablet by mouth 2 (Two) Times a Day. Active Diclofenac-Bushra bit-Mwjv-Vwrfe (INFLAMMATION REDUCTION PACK) 75-150-2.5-2.5 MG-MG-%-% therapy by Combination route. Active ondansetron (ZOFRAN) 4 MG tablet Take 1 tablet by mouth Every 8 (Eight) Hours As Needed for Nausea or Vomiting. 30 tablet 07/22/2019 2:11 PM EST 9 Active polyethylene glycol (MIRALAX) pack packet Take 17 g by mouth 2 (Two) Times a Day. 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 07/21/2019 Resolved Problems Problem Noted Date Diagnosed Date Resolved Date Hypothermia associated with surgery 07/22/2019 07/22/2019 Social History Tobacco Use Types Packs/Day Years Used Date Smoking Tobacco: Former Cigarettes 2 40 1 960 - 2000 Smokeless Tobacco: Never Alcohol Use Standard Drinks/Week Comments No 0 (1 standard drink = 0.6 oz pur e alcohol) AUDIT-C Answer Date Recorded Frequency of Alcohol Consumption Never 07/07/2019 Average Number of Drinks Not on file 019 Frequency of Binge Drinking Not on file 12/2018 Abuse Screen Answer Date Recorded Unsafe at Home or Work/School Not on file Feels Threatened by Someone? Not on file 08/2023 Does Anyone Keep You from Co ntacting Others or Doint Things Outside the Home? Not on file 06/14/2023 Physical Sign of Abuse Present Not on file 1 Housing Stability Answer Date Recorded Current Living Arrangements Not on file 06/03 Potentially Unsafe Housing Conditions Not on yves e 06/14/2023 Family and Community Support Answer Paul e Recorded Help with Day-to-Day Activities Not on file 06/14/2023 Lonely or Isolated Not on file 06/14/2023 Employment Answer Date Recorded Do you want help finding or keeping work or a em b? Not on file 06/14/2023 Disabilities Answer Date Recorded Concentrating, Remembering, or Making Decisions Difficulty Not on file 06/14/2023 Doing Errands Independently Difficulty Not on fi le 06/14/2023 Education Answer Date Recorded Help with school or training? Not on file Preferred Language Not on file 06/14/2023 Sex and Gender Information Value Date Recorded Sex Assigned at Not on file Legal Sex Male 10:41 AM EDT Gender Identity Not on file Sexual Orientation Not on file Last Filed Vital Signs Vital Sign Reading Time Taken Comments Blood Pressure 94/56 07/22/2019 11:33 AM EST Pulse 57 07/22/2019 11:33 AM EST Temperature 36.6 C (97.8 F) 07/22/2019 11:33 AM EST Respiratory Rate 16 07/22/2019 11:33 AM EST Oxygen Saturation 94% 07/22/2019 11:33 AM EST Inhaled Oxygen Concentration - - Weight 65.5 kg (144 lb 6.4 oz) 07/21/2019 8:15 A M EST Height 177.8 cm (5' 10 ) 07/21/2019 8:15 AM EST Body Mass Index 20.72 07/21/2019 8:15 AM EST Plan of Treatment Health Maintenance Due Date Last Done Comments TDAP/TD VACCINES (1 - Tdap) 11/15/1962 Pneumococcal Vaccine 50+ (1 of 1 - PCV) 11/15/1993 ZOSTER VACCINE (1 of 2) 11/15/1993 RSV Vaccine - Adults (1 - 1-dose 75+ series) 9 ANNUAL PHYSICAL 07/07/2019 LIPID PANEL 12/27/2024 12/28/2023 COVID-19 Vaccine ( season) 2025 INFLUENZA VACCINE 06/03/2025 Medical Devices Implanted Type Area Air Value Tester Device Identifier Shelf Expiration Date Model / Serial / Lot Stem Hum Equinoxe Preserve 7mm - [id number] - [id number] Implanted:Qty : 1 on 07/21/2019 by Andrey Suarez MD at [facility] Implant Right: Shoulder EXACTECH 07/04/2028 [id number] / [id number] / Try Hum Equinoxe Adpt Rev Shldr Pls0 - [id number] - [id number] Implanted:Qty : 1 on 07/21/2019 by Andrey Suarez MD at [facility] Implant Right: Shoulder EXACTECH [id number] 04/07/2029 [id number] / [id number] / Liner Hum Equinoxe Rev Shldr 38 Pls0 - [id number] - [id number] Implanted:Qty : 1 on 07/21/2019 by Andrey Suarez MD at [facility] Implant Right: Shoulder EXACTECH [id number] 05/18/2024 [id number] / [id number] / Totl Shldr Aug Plt Arthroplasty Upchrg - [id number] Implanted:Qty : 1 on 07/21/2019 by Andrey Suarez MD at [facility] Implant Right: Shoulder EXACTECH CAPSHOULTOTUPCHR GEXAC / / Totl Shldr Rev Ttl Exactech - [id number] Implanted:Qty : 1 on 07/21/2019 by Andrey Suarez MD at [facility] Implant Right: Shoulder EXACTECH CAPSHOUDREVEXACT TL / / Plt/Jnt Gonzalo Equinoxe Aug/Superior 10d - [id number] - [id number] Implanted:Qty : 1 on 07/21/2019 by Andrey Suarez MD at [facility] Implant Right: Shoulder EXACTECH 11/05/2028 [id number] / [id number] / NA Scrw Compr Equinoxe Lk 4.5x34mm - [id number] - [id number] Implanted:Qty : 1 on 07/21/2019 by Andrey Suarez MD at [facility] Implant Right: Shoulder EXACTECH [id number] 05/31/2024 [id number] / [id number] / Scrw Compr Equinoxe Lk 4.5x30mm - [id number] - [id number] Implanted:Qty : 1 on 07/21/2019 by Andrey Suarez MD at [facility] Implant Right: Shoulder EXACTECH [id number] 06/10/2024 [id number] / [id number] / Scrw Compr Equinoxe Lk 4.5x34mm - [id number] - [id number] Implanted:Qty : 1 on 07/21/2019 by Andrey Suarez MD at [facility] Implant Right: Shoulder EXACTECH [id number] 05/31/2024 [id number] / [id number] / Glenosphere Equinx Rev Shldr 38mm - [id number] - [id number] Implanted:Qty : 1 on 07/21/2019 by Andrey Suarez MD at [facility] Implant Right: Shoulder EXACTECH [id number] 06/22/2029 [id number] / [id number] / Scrw Equinx Glenosphere Lk - [id number] - [id number] Implanted:Qty : 1 on 07/21/2019 by Andrey Suarez MD at [facility] Implant Right: Shoulder EXACTECH [id number] 05/24/2024 [id number] / [id number] / Scrw Compr Equinoxe Lk 4.5x26mm - [id number] - [id number] Implanted:Qty : 1 on 07/21/2019 by Andrey Suarez MD at [facility] Implant Right: Shoulder EXACTECH [id number] 06/18/2024 [id number] / [id number] / Scrw Equinoxe Torq Define Rev Shldr Kt - [id number] - [id number] Implanted:Qty : 1 on 07/21/2019 by Andrey Suarez MD at [facility] Implant Right: Shoulder EXACTECH [id number] 05/27/2024 [id number] / [id number] / Insurance MEDICARE A & B Member Subscriber Plan / Payer (Ef fective 2008-Present) Name:Jeremi Spear Member ID:[id number] Relation to Subscriber:Self Name:Jeremi Spear Subscriber ID:[id number] Payer ID:[id number] Group ID:Not on file Type:Not on file Address: [address] [employer] OPTIONS Advance Directives * CPR (Attempt to Resuscitate) (Latest Code Status on File) Date Activated Date Inactivated Comments 07/21/2019 1:56 PM 07/22/2019 4:32 PM Question Answer Comments Code Status (Patient has no pulse and is not breathing): CPR (Attempt to Resuscitate) Medical Interventions (Patie nt has pulse or is breathing): Full Care Teams Audio Video Repairer Relationship Specialty Start Date End Date Kavon Alcantara MD [address] [facility] [address] [place] [address] PCP - General Internal Medicine 07/22/19
--- OUTSIDE RECORDS SUMMARY | 2025-05-15 09:48 | XMS_ITS ---
Author Organization [facility] Address [address] [place] [address] Care Team Providers Care Cotton Candy Maker Name Role Phone Kavon Alcantara MD Primary Care Provider [phone] Active Problems Problem Noted Date Diagnosed Date Optic papillitis, bilateral 03/24/2025 Optic neuropathy, bilateral 03/24/2025 Presbyopia of both eyes 09/17/2024 Acute ischemic stroke 03/19/2024 Binocular vision disorder with diplopia 02/21/20 24 Lung mass 12/31/2023 Cerebrovascular accident 12/29/2023 [...] reverse arthroplasty of right should er 07/21/2019 Current Treatment and Therapy Plans No current plan information found. Past Treatment and Therapy Plans No past plan information found. Lifetime Dose Tracking * Chemical Lifetime Dose Automatic Entry Manual Entr y Fluoro Time 11.3 minutes 11.3 minutes 0 minutes Air Kerma 121 mGy 121 mGy 0 mGy
== END 2025-05-13 23:59 ==
LOC: LAB.DROPOF 05-15 09:46
PROVIDERS: PCP Internal Medicine; Visit Provider Internal Medicine
DX: C61 Malignant neoplasm of prostate (principal); E78.5 Hyperlipidemia, unspecified; I10 Essential (primary) hypertension; I71.40 Abdominal aortic aneurysm, without rupture, unspecified; M15.0 Primary generalized (osteo)arthritis
CPT/HCPCS: 80053; 80061; 84153